=== PATIENT | female | born 1955 | race Caucasian/White ===

== ENCOUNTER → 2017-12-03 08:29 | Outpatient (CLI) | payer OTHER, SELFPAY | PROVIDERS: Family Provider Internal Medicine; PCP Internal Medicine; Visit Provider Internal Medicine | DX: E11.9 Type 2 diabetes mellitus without complications (principal); Z79.4 Long term (current) use of insulin ==

== ENCOUNTER → 2017-12-09 08:09 | Outpatient (CLI) | payer OTHER, SELFPAY ==
[2017-12-09 08:36] LABS: Hematocrit 39.6 % (37-47); Hemoglobin 13.1 g/dl (12.0-15.0); Mean Corp Hgb Conc 33.1 g/gl (32-36); Mean Corpuscular Hgb 26.6 pg (27.0-32.0); Mean Corpuscular Volume 80.3 fL (81-99); Mean Platelet Vol. 9.7 fl (6.2-12.0); Platelet Count 235 K/mm3 (150-450); RBC Distribution Width CV 13.8 % (11.6-14.6); RBC Distribution Width SD 39.8 fl (35.1-43.9); Red Blood Count 4.93 M/mm3 (4.2-5.4); White Blood Count 7.9 K/mm3 (4.4-11.0)
[2017-12-09 08:37] LABS: Scan Indicated on CBC? Y/N NO
[2017-12-09 09:02] LABS: Microalbumin,Random Urine 12.5 mg/L (NO RANGE EST.); Microalbumin:Creatinine Ratio 5.7 mg/g CRE (<30 mg/g CRE)
== END ==
PROVIDERS: Family Provider Internal Medicine; PCP Internal Medicine; Visit Provider Internal Medicine
DX: Z79.899 Other long term (current) drug therapy (principal)
CPT/HCPCS: 36415; 82043; 82570; 85027

== ENCOUNTER → 2017-12-31 12:29 | Outpatient (CLI) | payer OTHER, SELFPAY | PROVIDERS: Family Provider Internal Medicine; PCP Internal Medicine; Visit Provider Internal Medicine | DX: Z12.31 Encounter for screening mammogram for malignant neoplasm of breast (principal) | CPT/HCPCS: 77063; 77067 ==

== ENCOUNTER → 2018-06-08 07:14 | Outpatient (CLI) | payer OTHER, SELFPAY ==
[2018-06-08 08:41] LABS: Hemoglobin A1c 6.8 % (4.2-6.3)
[2018-06-08 08:53] LABS: ALB/GLOB Ratio 1.1 RATIO (0.9-2.4); AST(SGOT) 10 U/L (15-37); Alanine Aminotransfer ALT/SGPT 19 U/L (13-56); Albumin, Serum 3.5 g/dL (3.2-5.0); Alkaline Phosphatase 57 U/L (45-117); Anion Gap 9 (5-15); BUN 14 mg/dL (7-18); BUN/Creat Ratio 17.2 RATIO (10-20); Calcium,Total 8.8 mg/dL (8.5-10.1); Chloride 101 mmol/L (98-107); Cholesterol 195 mg/dL (200); Creatinine, Serum 0.81 mg/dL (0.55-1.02); EST Glomerular Filtration Rate 75 mL/min (>60); Est Glom Filt Rate - Afr Amer 91 mL/min (>60); Globulin 3.2 g/dL (2.2-4.2); Glucose 155 mg/dL (74-106); High Density Lipoprotein 53 mg/dL; Potassium 3.6 mmol/L (3.5-5.1); Protein, Total 6.7 g/dL (6.4-8.2); Sodium Level 140 mmol/L (136-145); Triglycerides 197 mg/dL; Very Low Density Lipoprotein 39 mg/dL (5-40)
--- OUTSIDE RECORDS SUMMARY | 2018-08-12 22:20 | XMS RPT_ITS ---
:1955 Author Organization OHIP Care Team Providers Name Role Phone DILLON LEMUS (YAQUELIN) Attending Unavailable RAVIN NAJERA Referring Unavailable TAMARA BALLESTEROS Admitting Unavailable TAMARA BALLESTEROS Attending Unavailable RAVIN NAJERA Referring Unavailable NAJERA, RAVIN Ramires Attending Unavailable RAVIN NAJERA Attending Unavailable RAVIN NAJERA Referring Unavailable DANIA, RAVIN Ramires Referring Unavailable Ravin Najera Attending Unavailable Ravin Najera Primary Care Unavailable Ravin Najera Referring Unavailable Ravin Najera Attending Unavailable Ravin Najera Primary Care Unavailable Ravin Najera Attending Unavailable Ravin Najera Referring Unavailable Dania, Ravin Primary Care Unavailable Ravin Najera Attending Unavailable Ravin Najera Primary Care Unavailable Ravin Najera Attending Unavailable Ravin Najera Primary Care Unavailable Ravin Najera Referring Unavailable PROBLEMS PROBLEMS DATE TYPE CONDITION / CODE ATTENDING STATUS SOURCE 06/14/2018 Active Other fpc NA Active [facility] (current) drug [facility] therapy / Repository Z79.899(ICD-10) 05/07/2015 Active Type 2 diabetes DANIA, Active [facility] mellitus without [facility] complications / Repository E11.9(ICD-10) 05/07/2015 Active residential (current) NAJERA, Active [facility] use of insulin / [facility] Z79.4(ICD-10) Repository 10/29/2006 Active Essential (primary) NAJERA, Active [facility] hypertension / [facility] I10(ICD-10) Repository 12/22/2017 Active Encounter for NAJERA, Active [facility] screening mammogram [facility] for malignant Repository neoplasm of breast / Z12.31(ICD-10) 12/09/2017 Unknown Z79.899 - Other Najera, Active [facility] [employer] (current) [facility] drug therapy / Hospital Z79.899(ICD-10) Repository 09/17/2017 Active Encounter for FAVIAN, Active [facility] screening for TAMARA [facility] malignant neoplasm Repository of colon / Z12.11(ICD-10) PROCEDURES PROCEDURES No Procedure Records FoundRESULTS RESULTS ALBUMIN/CREAT RATIO Collected: 06/14/2018 Status: F Source: [place] 9:40 AM [facility] REPOSITORY TYPE CODE TESTS RESULT OUT OF REFERENCE UNITS RANGE LAB UCRR 20-300 mg/dL 141.0 Creatinine,Ur ine,Ran LAB UALBR 0.0-23.0 mg/L <12.0 Albumin Urine Random LAB UALBCR 0-30 mg/g Not Albumin/Creat calculated Ratio Performed By: #### UACR #### [facility] [address] [address] PROGRESS Observed: 06/14/2018 Status: COMPLETED Source: [place] 9:27 AM [facility] REPOSITORY HNO ID: [id number] Author: Ravin Ramires Najera Service: (none) Author Type: Physician Type: Progress Notes Filed: 06/14/2018 9:41 AM Note Text: This note was created using Kngrooriter. Subjective Franklin Mota is a 62 year old female here for her annual physical. She was doing well and had no acute concerns. Her diabetes mellitus and hypertension were controlled. Lipids were not ideal but she was statin intolerant. We reviewed her lab results. PAST MEDICAL HISTORY Diagnosis Date - Chronic venous insufficiency 09/02/2010 - CIRCUMSCRIBE SCLERODERMA 11/04/2006 external genitalia - Essential hypertension, benign 10/29/2006 - Family history of malignant neoplasm of gastrointestinal tract 10/29/2006 - Internal hemorrhoids without mention of complication - Left knee DJD 10/05/2011 - Lichen sclerosus et atrophicus of the vulva 06/11/2017 - Mental disorder - Rectocele 10/29/2006 - Snoring - Type II or unspecified type diabetes mellitus without mention of complication, not stated as uncontrolled 04/13/2005 PAST SURGICAL HISTORY Procedure Laterality Date - BIOPSY BREAST 1997 benign - COLONOSCOP W/ OR W/O BRS SPEC Colonoscopy - COLONOSCOP W/ OR W/O BRSH SPEC 03/16/2007 Colonoscopy - COLONOSCOP W/ OR W/O BRS SPEC 09/17/2017 repeat in 5 years due to family history - TOTAL ABDOM HYSTERECTOMY 1997 still has ovaries FAMILY HISTORY Problem Relation Age of Onset - Colon Cancer Mother diagnosed age 56, age 56 - Hypertension Mother - Diabetes Mother - Coronary Artery Disease Father [place] age 62. - Prostate Cancer Father - Alzheimer's Disease Father - Alzheimer's Disease Paternal Grandfather - Diabetes Son - Diabetes Son - None Sister - None Brother Social History Marital status: Spouse name: tamara Years of education: Number of children: Occupational History Occupation Employer Comment retired [employer]* Social History Main Topics Smoking status: Never Smoker Smokeless tobacco: Never Used Alcohol use: No Drug use: No Sexual activity: Yes Partners with: Male Comment: pt had hysterectomy 01/1998 ALLERGIES Allergen Reactions - Urfcgxr-Vzv-Gvr Red* Other: See Comments noemi Ying, multiple statins tried. - [place] - Seasonal Allergies Other: See Comments Runny nose Current Outpatient Prescriptions: insulin glargine (LANTUS U-100 INSULIN) 100 unit/mL injection Taking THIRTY (30) units at bedtime. Fasting goal of less than 130. insulin lispro (HUMALOG KWIKPEN INSULIN) 100 unit/mL inpn Inject 15 Units subcutaneously three times daily before meals. hydroCHLOROthiazide (HYDRODIURIL, ESIDRIX) 25 mg tablet TAKE 1 TABLET DAILY losartan (COZAAR) 100 mg tablet TAKE 1 TABLET DAILY metFORMIN (GLUCOPHAGE) 1,000 mg tablet TAKE 1 TABLET TWICE A DAY WITH MEALS verapamil SR (CALAN SR, ISOPTIN SR) 240 mg CR tablet TAKE 1 TABLET DAILY Macy-3 Fatty Acids (FISH OIL) 500 mg cap Take 2 capsules by mouth once daily. blood sugar diagnostic (FREESTYLE LITE STRIPS) test strip Test blood sugar(s) 3 times daily. Dx: E11.9 Insulin: Yes Blood Glucose Control High and Low (FREESTYLE CONTROL) soln For testing as directed. DX E11.9 insulin needles, DISPOSABLE, (PEN NEEDLE) 31 gauge x 5/16 ndle 1 Each. USE ONE NEEDLE FOR EACH DOSE THREE PER DAY Insulin Syringe-Needle U-100 (BD ULTRAFINE INSULIN) 1 mL 31 x 5/16 syrg 1 Syringe once daily. Multivitamin ORAL Tab Take one(1) tablet daily. ASPIRIN 81 MG TAB one tablet twice daily No current facility-administered medications for this visit. Review of Systems Constitutional: Negative. HENT: Negative. Eyes: Negative. Respiratory: Negative. Cardiovascular: Positive for leg swelling. Negative for chest pain and palpitations. Gastrointestinal: Negative. Genitourinary: Negative. Musculoskeletal: Positive for arthralgias. Neurological: Negative. Psychiatric/Behavioral: Negative. Objective BP 128/70 (BP Site: Left Arm, BP Position: Sitting, BP Cuff Size: Large Adult) Pulse 68 Temp 36.2 ?C (97.1 ?F) (Temporal Artery) Resp 16 Ht 161.3 cm (5' 3.5) Wt 91.6 kg (202 lb) BMI 35.22 kg/m? Physical Exam Constitutional: No distress. HENT: Head: Normocephalic. Eyes: Conjunctivae are normal. No scleral icterus. Neck: Normal carotid pulses and no JVD present. Carotid bruit is not present. No thyromegaly present. Cardiovascular: Normal rate, regular rhythm, S1 normal and S2 normal. Exam reveals no gallop. No murmur heard. Pulmonary/Chest: She has no wheezes. She has no rales. Abdominal: Soft. She exhibits no mass. There is no tenderness. Musculoskeletal: Normal range of motion. She exhibits edema. She exhibits no tenderness. 1-2+ nonpitting lymphedema. Fine varicose veins in distal lower extremities. Skin: She is not diaphoretic. Glucose meter data or log was reviewed. Range: 58-169. Average: n/a. Patient was testing BID. Higher frequency of testing needed: no. Outside labs reviewed. Assessment and Plan 1. Routine physical examination - ICD9: V70.0, ICD10: Z00.00 (primary diagnosis) - Discussed need and benefit for weight loss. BMI 35.22 kg/(m2) - Vaccination(s) recommended today of Shingrix 2. Obesity, Class II, BMI 35-39.9 - ICD9: 278.00, ICD10: E66.9 Weight loss. 3. Controlled type 2 diabetes mellitus without complication, with long-term current use of insulin (HCC) - ICD9: 250.00, V58.67, ICD10: E11.9, Z79.4 Controlled. - Continue current medications - BASIC METABOLIC PNL - HGB A1C - Statins discussed, and she was intolerant to multiple statins. 4. Essential hypertension, benign - ICD9: 401.1, ICD10: I10 - good control - Continue current medication(s) - Goal of BP <130/80 5. Chronic venous insufficiency - ICD9: 459.81, ICD10: I87.2 Stable. 6. Primary osteoarthritis of both knees - ICD9: 715.16, ICD10: M17.0 Stable. Ravin Najera MD CNOV Observed: 06/14/2018 Status: COMPLETED Source: [place] 8:40 AM [facility] REPOSITORY Office Visit (INTMWS) FRANKLIN MOTA ([id number]) 1955 F Date Time Provider Department 06/14/18 8:40 AM RAVIN NAJERA INTMWS During your visit today, we recorded the following information about you: Temperature Pulse Respiration Blood pressure 97.1 degrees 68/minute 16/minute 128/70 Weight Height 91.6 kg 1.613 m Ravin Najera MD 06/14/2018 9:24 AM Signed Recombinant shingles vaccine (Shingrix) is recommended; 2 doses 2-6 months apart. Please read information, check with your insurance, and call to schedule vaccination. You may also be directed to your local pharmacy. Ravin Najera MD 06/14/2018 9:41 AM Signed This note was created using Kngrooriter. Subjective Franklin Mota is a 62 year old female here for her annual physical. She was doing well and had no acute concerns. Her diabetes mellitus and hypertension were controlled. Lipids were not ideal but she was statin intolerant. We reviewed her lab results. PAST MEDICAL HISTORY Diagnosis Date - Chronic venous insufficiency 09/02/2010 - CIRCUMSCRIBE SCLERODERMA 11/04/2006 external genitalia - Essential hypertension, benign 10/29/2006 - Family history of malignant neoplasm of gastrointestinal tract 10/29/2006 - Internal hemorrhoids without mention of complication - Left knee DJD 10/05/2011 - Lichen sclerosus et atrophicus of the vulva 06/11/2017 - Mental disorder - Rectocele 10/29/2006 - Snoring - Type II or unspecified type diabetes mellitus without mention of complication, not stated as uncontrolled 04/13/2005 PAST SURGICAL HISTORY Procedure Laterality Date - BIOPSY BREAST 1997 benign - COLONOSCOP W/ OR W/O [facility] SPEC Colonoscopy - COLONOSCOP W/ OR W/O BRS SPEC 03/16/2007 Colonoscopy - COLONOSCOP W/ OR W/O BRS SPEC 09/17/2017 repeat in 5 years due to family history - TOTAL ABDOM HYSTERECTOMY 1997 still has ovaries FAMILY HISTORY Problem Relation Age of Onset - Colon Cancer Mother diagnosed age 56, age 56 - Hypertension Mother - Diabetes Mother - Coronary Artery Disease Father [place] age 62. - Prostate Cancer Father - Alzheimer's Disease Father - Alzheimer's Disease Paternal Grandfather - Diabetes Son - Diabetes Son - None Sister - None Brother Social History Marital status: Spouse name: tamara Years of education: Number of children: Occupational History Occupation Employer Comment retired [employer]* Social History Main Topics Smoking status: Never Smoker Smokeless tobacco: Never Used Alcohol use: No Drug use: No Sexual activity: Yes Partners with: Male Comment: pt had hysterectomy 01/1998 ALLERGIES Allergen Reactions - Dccwubm-Psx-Rfs Red* Other: See Comments Cramps, nighmares, multiple statins tried. - [place] - Seasonal Allergies Other: See Comments Runny nose Current Outpatient Prescriptions: insulin glargine (LANTUS U-100 INSULIN) 100 unit/mL injection Taking THIRTY (30) units at bedtime. Fasting goal of less than 130. insulin lispro (HUMALOG KWIKPEN INSULIN) 100 unit/mL inpn Inject 15 Units subcutaneously three times daily before meals. hydroCHLOROthiazide (HYDRODIURIL, ESIDRIX) 25 mg tablet TAKE 1 TABLET DAILY losartan (COZAAR) 100 mg tablet TAKE 1 TABLET DAILY metFORMIN (GLUCOPHAGE) 1,000 mg tablet TAKE 1 TABLET TWICE A DAY WITH MEALS verapamil SR (CALAN SR, ISOPTIN SR) 240 mg CR tablet TAKE 1 TABLET DAILY Macy-3 Fatty Acids (FISH OIL) 500 mg cap Take 2 capsules by mouth once daily. blood sugar diagnostic (FREESTYLE LITE STRIPS) test strip Test blood sugar(s) 3 times daily. Dx: E11.9 Insulin: Yes Blood Glucose Control High and Low (FREESTYLE CONTROL) soln For testing as directed. DX E11.9 insulin needles, DISPOSABLE, (PEN NEEDLE) 31 gauge x 5/16 ndle 1 Each. USE ONE NEEDLE FOR EACH DOSE THREE PER DAY Insulin Syringe-Needle U-100 (BD ULTRAFINE INSULIN) 1 mL 31 x 5/16 syrg 1 Syringe once daily. Multivitamin ORAL Tab Take one(1) tablet daily. ASPIRIN 81 MG TAB one tablet twice daily No current facility-administered medications for this visit. Review of Systems Constitutional: Negative. HENT: Negative. Eyes: Negative. Respiratory: Negative. Cardiovascular: Positive for leg swelling. Negative for chest pain and palpitations. Gastrointestinal: Negative. Genitourinary: Negative. Musculoskeletal: Positive for arthralgias. Neurological: Negative. Psychiatric/Behavioral: Negative. Objective BP 128/70 (BP Site: Left Arm, BP Position: Sitting, BP Cuff Size: Large Adult) Pulse 68 Temp 36.2 ?C (97.1 ?F) (Temporal Artery) Resp 16 Ht 161.3 cm (5' 3.5) Wt 91.6 kg (202 lb) BMI 35.22 kg/m? Physical Exam Constitutional: No distress. HENT: Head: Normocephalic. Eyes: Conjunctivae are normal. No scleral icterus. Neck: Normal carotid pulses and no JVD present. Carotid bruit is not present. No thyromegaly present. Cardiovascular: Normal rate, regular rhythm, S1 normal and S2 normal. Exam reveals no gallop. No murmur heard. Pulmonary/Chest: She has no wheezes. She has no rales. Abdominal: Soft. She exhibits no mass. There is no tenderness. Musculoskeletal: Normal range of motion. She exhibits edema. She exhibits no tenderness. 1-2+ nonpitting lymphedema. Fine varicose veins in distal lower extremities. Skin: She is not diaphoretic. Glucose meter data or log was reviewed. Range: 58-169. Average: n/a. Patient was testing BID. Higher frequency of testing needed: no. Outside labs reviewed. Assessment and Plan 1. Routine physical examination - ICD9: V70.0, ICD10: Z00.00 (primary diagnosis) - Discussed need and benefit for weight loss. BMI 35.22 kg/(m2) - Vaccination(s) recommended today of Shingrix 2. Obesity, Class II, BMI 35-39.9 - ICD9: 278.00, ICD10: E66.9 Weight loss. 3. Controlled type 2 diabetes mellitus without complication, with long-term current use of insulin (HCC) - ICD9: 250.00, V58.67, ICD10: E11.9, Z79.4 Controlled. - Continue current medications - BASIC METABOLIC PNL - HGB A1C - Statins discussed, and she was intolerant to multiple statins. 4. Essential hypertension, benign - ICD9: 401.1, ICD10: I10 - good control - Continue current medication(s) - Goal of BP <130/80 5. Chronic venous insufficiency - ICD9: 459.81, ICD10: I87.2 Stable. 6. Primary osteoarthritis of both knees - ICD9: 715.16, ICD10: M17.0 Stable. Ravin Najera MD Referring Provider: RAVIN NAJERA [[id number]] Allergies As of Date: 06/14/2018 Noted Allergy Reaction KQZFFCM-OPZ-LHU REDUCTASE INHIBIT*08/21/2013 14 - Other: See Comments Comments: noemi Ying, multiple statins tried. [place] 09/18/2008 SEASONAL ALLERGIES 10/21/2010 14 - Other: See Comments Comments: Runny nose Date Reviewed: 06/14/2018 Reviewed by: Renee Cannon LPN - Fully Assessed Reason for Visit: Yearly Exam [187] Primary Visit Diagnosis:Routine physical examination [Z00.00] Other Visit Diagnoses:Obesity, Class II, BMI 35-39.9 [E66.9] Controlled type 2 diabetes mellitus without complication, with long-term current use of insulin (HCC) [E11.9, Z79.4] Essential hypertension, benign [I10] Chronic venous insufficiency [I87.2] Primary osteoarthritis of both knees [M17.0] Order(s):insulin glargine (LANTUS U-100 INSULIN) 100 unit/mL injectionTaking THIRTY (30) units at bedtime. Fasting goal of less than 130.Disp: 8 VialRfl: 3 insulin lispro (HUMALOG KWIKPEN INSULIN) 100 unit/mL inpnInject 15 Units subcutaneously three times daily before meals.Disp: 15 PenRfl: 3 BASIC METABOLIC PNL [SQBMP] Order #: [id number] FUTURE HGB A1C [GTSFP4S] Order #: [id number] FUTURE BMP - EXTERNAL [0664220] Order #: [id number] LIPID PANEL (EXTERNAL) [9613415] Order #: [id number] HGB A1C [RFPEZ1H] Order #: [id number] Prescriptions as of 06/14/2018 Sig: INSULIN GLARGINE (U-100) 100 * Taking THIRTY (30) units at b* INSULIN LISPRO (U-100) 100 UN* Inject 15 Units subcutaneousl* HYDROCHLOROTHIAZIDE 25 MG TAB* TAKE 1 TABLET DAILY LOSARTAN 100 MG TABLET TAKE 1 TABLET DAILY METFORMIN 1,000 MG TABLET TAKE 1 TABLET TWICE A DAY WIT* VERAPAMIL ER (SR) 240 MG TABL* TAKE 1 TABLET DAILY OMEGA-3 FATTY ACIDS 500 MG CA* Take 2 capsules by mouth once* BLOOD SUGAR DIAGNOSTIC STRIPS Test blood sugar(s) 3 times d* BLOOD GLUCOSE CONTROL HIGH AN* For testing as directed. DX * PEN NEEDLE, DIABETIC 31 GAUGE* 1 Each. USE ONE NEEDLE FOR EA* INSULIN SYRINGE U-100 WITH NE* 1 Syringe once daily. MULTIVITAMIN TABLET Take one(1) tablet daily. 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 Please read information, check with your insurance, and call to schedule vaccination. You may also be directed to your local pharmacy. Prescriptions ordered this encounter Disp Refills Start End INSULIN GLARGINE (U-100) 100 UNIT/ML* 8 Vi* 3 06/14/2018 Class: Print RX Sig: Taking THIRTY (30) units at bedtime. Fasting goal of less than 130. INSULIN LISPRO (U-100) 100 UNIT/ML S* 15 P* 3 06/14/2018 Class: Print RX Route: SUBCUTANEOUS Sig: Inject 15 Units subcutaneously three times daily before meals. Medications Discontinued During This Encounter COMPOUNDED PRESCRIPTION 1 Ea* 0 12/22/2017 06/14/2018 Class: Print RX Sig: Screening bilateral mammogram. Dx:Z12.31 Patient not taking: Reported on 06/14/2018 Disc: Reason for discontinue is not on file. insulin glargine (LANTUS) 100 unit/m* 8 Vi* 3 05/26/2016 06/14/2018 Class: Med Update Sig: Taking THIRTY (30) units at bedtime. Fasting goal of less than 130. Disc: Reason for discontinue is not on file. Insulin Lispro, Human, (HUMALOG KWIK* 15 P* 3 09/29/2014 06/14/2018 Route: SUBCUTANEOUS Sig: Inject 15 Units subcutaneously three times daily before meals. Disc: Reason for discontinue is not on file. ibuprofen (MOTRIN) 800 mg tablet 30 t* 0 08/10/2016 06/14/2018 Route: ORAL Sig: Take 1 tablet by mouth twice daily as needed for Pain. Take with food. Disc: Reason for discontinue is not on file. clobetasol (TEMOVATE) 0.05 % ointment 15 g 3 05/25/2017 06/14/2018 Route: TOPICAL Sig: Apply 1 application to affected area daily at bedtime. TO AFFECTED AREA. Disc: Course of therapy completed Disposition: Return in about 6 months (around 12/12/2018). Follow-up and Disposition History Recorded Encounter Status:Closed by RAVIN NAJERA MD on 06/14/18 HEMOGLOBIN A1C Collected: 06/08/2018 Status: F Source: [facility] 7:19 AM [facility] REPOSITORY TYPE CODE TESTS RESULT OUT OF RANGE REFERENCE UNITS LAB L501.9985 4.2-6.3 % High HGB A1C 6.8 Performed By: #### L501.9985 #### [facility] [address] [place], [address] COMPREHENSIVE METABOLIC Collected: 06/08/2018 Status: F Source: [facility] 7:19 AM [facility] REPOSITORY TYPE CODE TESTS RESULT OUT OF RANGE REFERENCE UNITS LAB L501.0100 74-106 mg/dL High GLU 155 Result Comment: Fasting Glucose result greater than or equal to 126 mg/dL suggests DIABETES MELLITUS per A.D.A. criteria. Please note revised GLUCOSE reference range effective 2017. LAB L501.1000 7-18 mg/dL Normal BUN 14 LAB L501.1100 0.55-1.02 mg/dL Normal CREAT,SERUM 0.81 Result Comment: The validity of the calculated GFR AND GFRAA in patients over 70 years has not been determined. Clinical correlation is essential. LAB L501.1110 >60 mL/min Normal EST GFR 75 Result Comment: Non- GFR Calc LAB L501.1115 >60 mL/min Normal EST GFR - AA 91 Result Comment: GFR Calc LAB L501.1300 10-20 RATIO Normal BUN/CRE 17.2 LAB L501.1500 6.4-8.2 g/dL T Normal PROT 6.7 LAB L501.1800 3.2-5.0 g/dL Normal ALB 3.5 LAB L501.1950 2.2-4.2 g/dL Normal GLOB 3.2 LAB L501.2000 0.9-2.4 RATIO Normal A/G 1.1 LAB L501.2200 8.5-10.1 mg/dL CA Normal 8.8 LAB L501.4100 15-37 U/L Low AST 10 LAB L501.4305 45-117 U/L Normal ALK P 57 LAB L501.4405 13-56 U/L Normal ALT 19 LAB L501.4600 0.20-1.00 mg/dL T Normal BILI 0.90 LAB L501.5300 136-145 mmol/L NA Normal 140 LAB L501.5600 3.5-5.1 mmol/L K Normal 3.6 LAB L501.5900 98-107 mmol/L CL Normal 101 LAB L501.6100 21.0-32.0 mmol/L Normal CO2 30.0 LAB L501.6200 5-15 Normal GAP 9 Performed By: #### L500.4050, L500.4100 #### [facility] [address] [place], [place], [id number] LIPID PROFILE Collected: 06/08/2018 Status: F Source: [facility] 7:19 AM [facility] REPOSITORY TYPE CODE TESTS RESULT OUT OF RANGE REFERENCE UNITS LAB L501.4900 200 mg/dL Normal CHOL 195 Result Comment: <200 mg/dL Desirable 200-240 mg/dL Borderline >240 mg/dL High Risk LAB L501.5000 mg/dL Normal TRIG 197 Result Comment: The drugs N-Acetylcysteine and Metamizole may falsely depress this assay. Serum Triglycerides Reference Interval Normal <150 mg/dL Borderline high 150 - 199 mg/dL High 200 - 499 mg/dL Very High > or = 500 mg/dL LAB L501.6400 mg/dL Normal HDL 53 Result Comment: The drugs N-Acetylcysteine and Metamizole may falsely depress this assay. Reference Range HDL <40 mg/dL Low HDL Cholesterol HDL >or= 60 mg/dL High HDL Cholesterol LAB L501.6500 0-130 mg/dL Normal LDL 103 LAB L501.6600 5-40 mg/dL Normal VLDL 39 Performed By: #### L500.4050, L500.4100 #### [facility] [address] [place], [place], [id number] SCREENING MAMM (CAD), Observed: 12/31/2017 Status: F Source: [facility] 12:31 PM [facility] REPOSITORY [facility] Imaging Services [address] [place] [address] SCREENING MAMM (CAD), BILAT MR#: [id number] Acct: [id number] Name: FRANKLIN MOTA Rep #: [id number] : 1955 F 62 From: Ian Leiva MD PCP: Ravin Najera MD Status: REG CLI Study: SCREENING MAMM (CAD), BILAT Date of Exam: 12/31/17 Exam# [id number] Ordering Dr: Ravin Najera MD MAMMOGRAPHY - BILATERAL SCREENING 3-D YAYO SYNTHESIS REASON FOR EXAM: Female, 62 years old. Bilateral Screening 3-D tomosynthesis PERTINENT HISTORY: History of benign left excisional biopsy in 1997.. TECHNIQUE: 2-D mammograms and 3-D Yayo synthesis of the breast (s) were performed. CAD was performed. COMPARISON: November 06, 2015, April 12, 2013 FINDINGS: The breast composition is heterogeneously dense that can obscure small breast masses. Scattered benign calcifications and normal-appearing cyst are seen. No dense spiculated masses or suspicious microcalcifications are identified. No architectural distortion is identified. There is no skin thickening or retraction. There has been no significant change since the prior study. BI/SCREENING MAMM (CAD), BILAT IMPRESSION: No mammographic signs of malignancy. Routine yearly mammograms recommended. ASSESSMENT CATEGORY: BIRADS Category 2: Benign. A letter regarding these results will be sent to the patient by the facility within 30 days. FOLLOW UP RECOMMENDATION: Yearly follow up mammogram recommended. (A) Approximately 10% of breast cancers are not detected by mammography. A normal mammogram should not delay biopsy of a clinically suspicious abnormality. Electronically Signed: Ian Leiva MD at 18:51 EDT , Service support , CC: Ravin Najera MD Forming Roll Operator: Signed PROGRESS Observed: 12/23/2017 Status: COMPLETED Source: [place] 9:17 AM [facility] [place] REPOSITORY HNO ID: [id number] Author: Carrie Liu [facility] Service: (none) Author Type: (none) Type: Progress Notes Filed: 12/28/2017 10:35 AM Note Text: Please file mammogram. Reminder letters mailed to patient. PROGRESS Observed: 12/23/2017 Status: COMPLETED Source: [place] 9:15 AM [facility] REPOSITORY HNO ID: [id number] Author: Carrie Liu [facility] Service: (none) Author Type: (none) Type: Progress Notes Filed: 12/28/2017 10:35 AM Note Text: Franklin has an upcoming appointment with PCP on 06/14/18. Labs already ordered (will be due around that time). I will send appointment/lab reminder. I will also send dm retinal reminder/release form. Mammogram order pending. Please file. Health Maintenance Due: DILATED RETINAL EXAM due on 11/11/2017 - sending reminder LDL CHOLESTEROL due on 11/19/2017 - ordered MAMMOGRAM due on 12/09/2017 - order pending INFLUENZA(1) due on 01/22/2018 CNPTOUTREACH Observed: 12/23/2017 Status: COMPLETED Source: [place] 12:00 AM [facility] REPOSITORY Patient Outreach (INTMWS) FRANKLIN MOTA ([id number]) 1955 F Date Time Provider Department 12/23/17 CARRIE LIU ([facility] [address] INTMWS During your visit today, we recorded the following information about you: Carrie Liu [facility] 12/28/2017 10:35 AM Signed Franklin has an upcoming appointment with PCP on 06/14/18. Labs already ordered (will be due around that time). I will send appointment/lab reminder. I will also send dm retinal reminder/release form. Mammogram order pending. Please file. Health Maintenance Due: DILATED RETINAL EXAM due on 11/11/2017 - sending reminder LDL CHOLESTEROL due on 11/19/2017 - ordered MAMMOGRAM due on 12/09/2017 - order pending INFLUENZA(1) due on 01/22/2018 Carrie Liu [employer] 12/28/2017 10:35 AM Signed Please file mammogram. Reminder letters mailed to patient. Allergies As of Date: 12/23/2017 Noted Allergy Reaction [id number]-GGL REDUCTASE INHIBIT*08/21/2013 14 - Other: See Comments Comments: Cramps, nighmares, multiple statins tried. [place] 09/18/2008 SEASONAL ALLERGIES 10/21/2010 14 - Other: See Comments Comments: Runny nose Date Reviewed: 12/22/2017 Reviewed by: Renee Cannon LPN - Fully Assessed Reason for Visit: PHMA/Care Gap Outreach [[id number]] Primary Visit Diagnosis:Encounter for screening mammogram for malignant neoplasm of breast [Z12.31] Order(s):[facility] SCREENING [[id number]] Order #: [id number] FUTURE Prescriptions as of 12/23/2017 Sig: COMPOUNDED PRESCRIPTION Screening bilateral mammogram* VERAPAMIL ER (SR) 240 MG TABL* TAKE 1 TABLET DAILY LOSARTAN 100 MG TABLET TAKE 1 TABLET DAILY CLOBETASOL 0.05 % TOPICAL OIN* Apply 1 application to affect* HYDROCHLOROTHIAZIDE 25 MG TAB* Take 1 tablet by mouth once d* METFORMIN 1,000 MG TABLET Take one(1) tablet twice francis* IBUPROFEN 800 MG TABLET Take 1 tablet by mouth twice * INSULIN GLARGINE (U-100) 100 * Taking THIRTY (30) units at b* OMEGA-3 FATTY ACIDS 500 MG CA* Take 2 capsules by mouth once* BLOOD SUGAR DIAGNOSTIC STRIPS Test blood sugar(s) 3 times d* BLOOD GLUCOSE CONTROL HIGH AN* For testing as directed. DX * PEN NEEDLE, DIABETIC 31 GAUGE* 1 Each. USE ONE NEEDLE FOR EA* INSULIN LISPRO (U-100) 100 UN* Inject 15 Units subcutaneousl* INSULIN SYRINGE-NEEDLE U-100 * 1 Syringe once daily. MULTIVITAMIN TABLET Take one(1) tablet daily. 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 Our records indicate that you may be due for a diabetic eye exam. If you have had a diabetic eye exam within the last year, please have your records sent to us so that we may update your medical records. There is a medical records of release of information included in this letter. Please take the release to your eye doctor for future appointments to have your records forwarded to us. Important facts about diabetic eye exams Diabetic retinal exams should be done yearly for all patients with a diagnosis of diabetes. Risks such as diabetic retinopathy can be reduced with blood glucose control and early detection of potential problems. Diabetic retinopathy is damage to the small blood vessels in the retina that can lead to blindness Thank you, Ravin Vazquez MD Letter Text Medicine [facility] [address] [id number] Office: [phone] Ravin Vazquez MD REQUEST FOR EYE EXAM FINDINGS June 12, 2016 Dear eye restorative care technician, Thank you for coordinating eye care for our mutual patient, Franklin Mota (1955). Please fax this letter back to me with the most appropriate response selected below. Please allow the patient's signature to serve as permission to share your findings. Sincerely, Ravin Vazquez MD Patient Signature Date Date of eye exam: Findings Both Eyes Right Left No Retinopathy Detected Non Proliferative Retinopathy Mild Moderate Severe Proliferative Retinopathy Macular Edema Further testing and/or treatment indicated Comments: Patient is to return: Encounter Status:Closed by CARRIE LIU CMA on 12/28/17 PROGRESS Observed: 12/22/2017 Status: COMPLETED Source: [place] 9:58 AM [facility] REPOSITORY HNO ID: [id number] Author: Ravin Najera Service: (none) Author Type: Physician Type: Progress Notes Filed: 12/22/2017 12:40 PM Note Text: This note was created using [employer]. Subjective Franklin Mota is a 62 year old female here for follow up. She was doing well. Her diabetes mellitus was reportedly controlled, and hypertension was controlled. Labs for me were not done, as patient outreach entered other labs. In May, she eventually had IANDD of her perirectal abscess. This resolved. Colonoscopy was then done, and was negative for polyps. Repeat was recommended in 5 years. Her eye exam was scheduled. Mammogram was due, and will be done at a non [facility] facility per her insurance. ACTIVE PROBLEM LIST Diabetes Type 2, Controlled (Hcc) Essential Hypertension, Benign Family History of Malignant Neoplasm of Gastrointestinal Tract Rectocele Chronic Venous Insufficiency Primary Osteoarthritis of Both Knees Lichen Sclerosus Et Atrophicus of The Vulva Current Outpatient Prescriptions: verapamil SR (CALAN SR, ISOPTIN SR) 240 mg CR tablet TAKE 1 TABLET DAILY losartan (COZAAR) 100 mg tablet TAKE 1 TABLET DAILY clobetasol (TEMOVATE) 0.05 % ointment Apply 1 application to affected area daily at bedtime. TO AFFECTED AREA. hydroCHLOROthiazide (HYDRODIURIL, ESIDRIX) 25 mg tablet Take 1 tablet by mouth once daily. metFORMIN (GLUCOPHAGE) 1,000 mg tablet Take one(1) tablet twice daily with meals.90 day supply ibuprofen (MOTRIN) 800 mg tablet Take 1 tablet by mouth twice daily as needed for Pain. Take with food. insulin glargine (LANTUS) 100 unit/mL injection Taking THIRTY (30) units at bedtime. Fasting goal of less than 130. Macy-3 Fatty Acids (FISH OIL) 500 mg cap Take 2 capsules by mouth once daily. blood sugar diagnostic (FREESTYLE LITE STRIPS) test strip Test blood sugar(s) 3 times daily. Dx: E11.9 Insulin: Yes Blood Glucose Control High and Low (FREESTYLE CONTROL) soln For testing as directed. DX E11.9 insulin needles, DISPOSABLE, (PEN NEEDLE) 31 gauge x 5/16 ndle 1 Each. USE ONE NEEDLE FOR EACH DOSE THREE PER DAY Insulin Lispro, Human, (HUMALOG KWIKPEN) 100 unit/mL inpn Inject 15 Units subcutaneously three times daily before meals. Insulin Syringe-Needle U-100 (BD ULTRAFINE INSULIN) 1 mL 31 x 5/16 syrg 1 Syringe once daily. Multivitamin ORAL Tab Take one(1) tablet daily. ASPIRIN 81 MG TAB one tablet twice daily COMPOUNDED PRESCRIPTION Screening bilateral mammogram. Dx:Z12.31 No current facility-administered medications for this visit. Review of Systems Constitutional: Negative. Respiratory: Negative. Cardiovascular: Positive for leg swelling. Negative for chest pain and palpitations. Gastrointestinal: Negative. Genitourinary: Negative. Skin: Negative. Objective BP 128/74 (BP Site: Right Arm, BP Position: Sitting, BP Cuff Size: Large Adult) Pulse 80 Temp 36.2 ?C (97.2 ?F) (Left Tympanic) Resp 16 Wt 92.1 kg (203 lb) BMI 34.84 kg/m? Physical Exam Constitutional: No distress. Cardiovascular: Normal heart sounds. Exam reveals no gallop. No murmur heard. Pulmonary/Chest: Breath sounds normal. She has no wheezes. She has no rales. Musculoskeletal: She exhibits edema. 2+ chronic edema. Test results pertinent to today's visit were reviewed and discussed with the patient. Hemoglobin A1C Date Value 06/01/2017 5.9 % 11/19/2016 6.5 11/04/2015 7.0 04/29/2015 6.9 % 10/25/2014 6.9 % Hemoglobin A1C (POCT) (%) Date Value 12/22/2017 5.7 ) Assessment and Plan 1. Controlled type 2 diabetes mellitus without complication, with long-term current use of insulin ([facility]) - ICD9: 250.00, V58.67, ICD10: E11.9, Z79.4 (primary diagnosis) Controlled. - Continue current medications. She preferred to postpone lipids and other labs for her yearly examination. - HEMOGLOBIN A1C (POC) - COMP METABOLIC PANEL - LIPID PANEL BASIC - HGB A1C 2. Essential hypertension, benign - ICD9: 401.1, ICD10: I10 - good control 3. Encounter for screening mammogram for breast cancer - ICD9: V76.12, ICD10: Z12.31 COMPOUNDED PRESCRIPTION- Mammogram order. During this patient visit I have spent approximately 15 minutes out of 20 in counseling regarding test results and coordinating care. Ravin Najera MD CNOV Observed: 12/22/2017 Status: COMPLETED Source: [place] 9:20 AM [facility] REPOSITORY Office Visit (INTMWS) FRANKLIN MOTA ([id number]) 1955 F Date Time Provider Department 12/22/17 9:20 AM RAVIN NAJERA INTMWS During your visit today, we recorded the following information about you: Temperature Pulse Respiration Blood pressure 97.2 degrees 80/minute 16/minute 128/74 Weight 92.1 kg Ravin Najera MD 12/22/2017 12:40 PM Signed This note was created using [employer]. Subjective Franklin Hernández Nakul is a 62 year old female here for follow up. She was doing well. Her diabetes mellitus was reportedly controlled, and hypertension was controlled. Labs for me were not done, as patient outreach entered other labs. In May, she eventually had IANDD of her perirectal abscess. This resolved. Colonoscopy was then done, and was negative for polyps. Repeat was recommended in 5 years. Her eye exam was scheduled. Mammogram was due, and will be done at a non [facility] facility per her insurance. ACTIVE PROBLEM LIST Diabetes Type 2, Controlled (Hcc) Essential Hypertension, Benign Family History of Malignant Neoplasm of Gastrointestinal Tract Rectocele Chronic Venous Insufficiency Primary Osteoarthritis of Both Knees Lichen Sclerosus Et Atrophicus of The Vulva Current Outpatient Prescriptions: verapamil SR (CALAN SR, ISOPTIN SR) 240 mg CR tablet TAKE 1 TABLET DAILY losartan (COZAAR) 100 mg tablet TAKE 1 TABLET DAILY clobetasol (TEMOVATE) 0.05 % ointment Apply 1 application to affected area daily at bedtime. TO AFFECTED AREA. hydroCHLOROthiazide (HYDRODIURIL, ESIDRIX) 25 mg tablet Take 1 tablet by mouth once daily. metFORMIN (GLUCOPHAGE) 1,000 mg tablet Take one(1) tablet twice daily with meals.90 day supply ibuprofen (MOTRIN) 800 mg tablet Take 1 tablet by mouth twice daily as needed for Pain. Take with food. insulin glargine (LANTUS) 100 unit/mL injection Taking THIRTY (30) units at bedtime. Fasting goal of less than 130. Macy-3 Fatty Acids (FISH OIL) 500 mg cap Take 2 capsules by mouth once daily. blood sugar diagnostic (FREESTYLE LITE STRIPS) test strip Test blood sugar(s) 3 times daily. Dx: E11.9 Insulin: Yes Blood Glucose Control High and Low (FREESTYLE CONTROL) soln For testing as directed. DX E11.9 insulin needles, DISPOSABLE, (PEN NEEDLE) 31 gauge x 5/16 ndle 1 Each. USE ONE NEEDLE FOR EACH DOSE THREE PER DAY Insulin Lispro, Human, (HUMALOG KWIKPEN) 100 unit/mL inpn Inject 15 Units subcutaneously three times daily before meals. Insulin Syringe-Needle U-100 (BD ULTRAFINE INSULIN) 1 mL 31 x 5/16 syrg 1 Syringe once daily. Multivitamin ORAL Tab Take one(1) tablet daily. ASPIRIN 81 MG TAB one tablet twice daily COMPOUNDED PRESCRIPTION Screening bilateral mammogram. Dx:Z12.31 No current facility-administered medications for this visit. Review of Systems Constitutional: Negative. Respiratory: Negative. Cardiovascular: Positive for leg swelling. Negative for chest pain and palpitations. Gastrointestinal: Negative. Genitourinary: Negative. Skin: Negative. Objective BP 128/74 (BP Site: Right Arm, BP Position: Sitting, BP Cuff Size: Large Adult) Pulse 80 Temp 36.2 ?C (97.2 ?F) (Left Tympanic) Resp 16 Wt 92.1 kg (203 lb) BMI 34.84 kg/m? Physical Exam Constitutional: No distress. Cardiovascular: Normal heart sounds. Exam reveals no gallop. No murmur heard. Pulmonary/Chest: Breath sounds normal. She has no wheezes. She has no rales. Musculoskeletal: She exhibits edema. 2+ chronic edema. Test results pertinent to today's visit were reviewed and discussed with the patient. Hemoglobin A1C Date Value 06/01/2017 5.9 % 11/19/2016 6.5 11/04/2015 7.0 04/29/2015 6.9 % 10/25/2014 6.9 % Hemoglobin A1C (POCT) (%) Date Value 12/22/2017 5.7 ) Assessment and Plan 1. Controlled type 2 diabetes mellitus without complication, with long-term current use of insulin (HCC) - ICD9: 250.00, V58.67, ICD10: E11.9, Z79.4 (primary diagnosis) Controlled. - Continue current medications. She preferred to postpone lipids and other labs for her yearly examination. - HEMOGLOBIN A1C (POC) - COMP METABOLIC PANEL - LIPID PANEL BASIC - HGB A1C 2. Essential hypertension, benign - ICD9: 401.1, ICD10: I10 - good control 3. Encounter for screening mammogram for breast cancer - ICD9: V76.12, ICD10: Z12.31 COMPOUNDED PRESCRIPTION- Mammogram order. During this patient visit I have spent approximately 15 minutes out of 20 in counseling regarding test results and coordinating care. Ravin Najera MD Referring Provider: SELF [[id number]] Allergies As of Date: 12/22/2017 Noted Allergy Reaction BPVICWT-NMI-OFF REDUCTASE INHIBIT*08/21/2013 14 - Other: See Comments Comments: noemi Ying, multiple statins tried. [place] 09/18/2008 SEASONAL ALLERGIES 10/21/2010 14 - Other: See Comments Comments: Runny nose Date Reviewed: 12/22/2017 Reviewed by: Renee Cannon LPN - Fully Assessed Reason for Visit: F/U 6 Month [444] Primary Visit Diagnosis:Controlled type 2 diabetes mellitus without complication, with long-term current use of insulin (HCC) [E11.9, Z79.4] Other Visit Diagnoses:Essential hypertension, benign [I10] Encounter for screening mammogram for breast cancer [Z12.31] Order(s):COMPOUNDED PRESCRIPTIONScreening bilateral mammogram. Dx:Z.31Disp: 1 EachRfl: 0 HEMOGLOBIN A1C (POC) [8136856] Order #: [id number]. #:[id number] COMP METABOLIC PANEL [SQCMP] Order #: [id number] FUTURE LIPID PANEL BASIC [SQLIPB] Order #: [id number] FUTURE HGB A1C [VEMVE0L] Order #: [id number] FUTURE Prescriptions as of 12/22/2017 Sig: VERAPAMIL ER (SR) 240 MG TABL* TAKE 1 TABLET DAILY LOSARTAN 100 MG TABLET TAKE 1 TABLET DAILY CLOBETASOL 0.05 % TOPICAL OIN* Apply 1 application to affect* HYDROCHLOROTHIAZIDE 25 MG TAB* Take 1 tablet by mouth once d* METFORMIN 1,000 MG TABLET Take one(1) tablet twice francis* IBUPROFEN 800 MG TABLET Take 1 tablet by mouth twice * INSULIN GLARGINE (U-100) 100 * Taking THIRTY (30) units at b* OMEGA-3 FATTY ACIDS 500 MG CA* Take 2 capsules by mouth once* BLOOD SUGAR DIAGNOSTIC STRIPS Test blood sugar(s) 3 times d* BLOOD GLUCOSE CONTROL HIGH AN* For testing as directed. DX * PEN NEEDLE, DIABETIC 31 GAUGE* 1 Each. USE ONE NEEDLE FOR EA* INSULIN LISPRO (U-100) 100 UN* Inject 15 Units subcutaneousl* INSULIN SYRINGE-NEEDLE U-100 * 1 Syringe once daily. MULTIVITAMIN TABLET Take one(1) tablet daily. 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 Dx:Z12.31 Disposition: Return in about 6 months (around 06/24/2018). Follow-up and Disposition History Recorded Encounter Status:Closed by RAVIN NAJERA MD on 12/22/17 CBC-COMPLETE BLOOD CNT Collected: 12/09/2017 Status: F Source: [place] NO DIFF 8:21 AM [facility] REPOSITORY TYPE CODE TESTS RESULT OUT OF RANGE REFERENCE UNITS LAB L100.1000 4.4-11.0 K/mm3 Normal WBC 7.9 LAB L100.1200 4.2-5.4 M/mm3 Normal RBC 4.93 LAB L100.1300 12.0-15.0 g/dl Normal HGB 13.1 LAB L100.1400 37-47 % Normal HCT 39.6 LAB L100.1500 81-99 fL Low MCV 80.3 LAB L100.1600 27.0-32.0 pg Low MCH 26.6 LAB L100.1700 32-36 g/gl Normal MCHC 33.1 LAB L100.1810 11.6-14.6 % Normal RDW CV 13.8 LAB L100.1820 35.1-43.9 fl Normal RDW SD 39.8 LAB L100.1900 150-450 K/mm3 Normal PLT 235 LAB L100.2000 6.2-12.0 fl Normal MPV 9.7 Performed By: #### L100.0500 #### [facility] [address] [place], [place], [id number] MICROALB:CREAT Collected: 12/09/2017 Status: F Source: [place] RATIO,RANDOM UR 8:21 AM [facility] REPOSITORY TYPE CODE TESTS RESULT OUT OF RANGE REFERENCE UNITS LAB L501.1200 NO RANGE EST. mg/dL Normal UR CREAT 218.00 LAB L502.0500 NO RANGE EST. mg/L Normal 12.5 MICROALBUMIN ,UR LAB L502.0600 <30 mg/g CRE mg/g CRE Normal 5.7 MALB:CREAT Performed By: #### L502.0250 #### [facility] [address] [facility]. [place], [place], [address] CNPTOUTREACH Observed: 12/07/2017 Status: COMPLETED Source: [place] 12:00 AM [facility] REPOSITORY Patient Outreach (INTMWH) FRANKLIN MOTA ([id number]) 1955 F Date Time Provider Department 12/07/17 RAVIN NAJERA [facility] During your visit today, we recorded the following information about you: Allergies As of Date: 12/07/2017 Noted Allergy Reaction PSYZMLF-ZFZ-MSN REDUCTASE INHIBIT*08/21/2013 14 - Other: See Comments Comments: noemi Ying, multiple statins tried. [place] 09/18/2008 SEASONAL ALLERGIES 10/21/2010 14 - Other: See Comments Comments: Runny nose Date Reviewed: 09/17/2017 Reviewed by: Reggie (Rn) THUY Munroe - Fully Assessed Visit Diagnosis:Medication management [Z79.899] Order(s):ALBUMIN/CREAT RATIO RND UR [SQUACR] Order #: [id number] FUTURE CBC [SQCBC] Order #: [id number] FUTURE Prescriptions as of 12/07/2017 Sig: X VERAPAMIL ER (SR) 240 MG TABL* TAKE 1 TABLET DAILY X LOSARTAN 100 MG TABLET TAKE 1 TABLET DAILY CLOBETASOL 0.05 % TOPICAL OIN* Apply 1 application to affect* X HYDROCHLOROTHIAZIDE 25 MG TAB* Take 1 tablet by mouth once d* X METFORMIN 1,000 MG TABLET Take one(1) tablet twice francis* IBUPROFEN 800 MG TABLET Take 1 tablet by mouth twice * INSULIN GLARGINE (U-100) 100 * Taking THIRTY (30) units at b* OMEGA-3 FATTY ACIDS 500 MG CA* Take 2 capsules by mouth once* BLOOD SUGAR DIAGNOSTIC STRIPS Test blood sugar(s) 3 times d* BLOOD GLUCOSE CONTROL HIGH AN* For testing as directed. DX * PEN NEEDLE, DIABETIC 31 GAUGE* 1 Each. USE ONE NEEDLE FOR EA* INSULIN LISPRO (U-100) 100 UN* Inject 15 Units subcutaneousl* INSULIN SYRINGE-NEEDLE U-100 * 1 Syringe once daily. MULTIVITAMIN TABLET Take one(1) tablet daily. 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 Patient did not experience a burn prior to discharge. Reggie Munroe RN NURSING PROG Observed: 09/17/2017 Status: COMPLETED Source: [place] 9:19 AM [facility] REPOSITORY HNO ID: [id number] Author: Reggie YanRn) THUY Munroe Service: Nursing Author Type: Registered Nurse Type: Nursing Progress Note Filed: 09/17/2017 9:20 AM Note Text: Tolerating snack, dressing to go home, spouse at her side. PT ED Observed: 09/17/2017 Status: COMPLETED Source: [place] 9:15 AM [facility] REPOSITORY HNO ID: [id number] Author: Reggie Reese) THUY Munroe Service: Nursing Author Type: Registered Nurse Type: Patient Education Filed: 09/17/2017 9:22 AM Note Text: POST OP LEARNING RESPONSE INSTRUCTION PROVIDED TO: Patient and family member METHOD OF INSTRUCTION: Individual instruction Written instruction - handouts Verbal instruction PATIENT / FAMILY RESPONSE: Information received as demonstrated by interest and questions FOLLOW-UP PLAN: Patient instructed to call with any further issues SUPPLEMENTAL MATERIAL: None REFERRAL (RECOMMENDATION): None Electronically Signed By: Reggie Munroe RN In Department: AMBULATORY SURGERY NURSING PROG Observed: 09/17/2017 Status: COMPLETED Source: [place] 9:00 AM [facility] REPOSITORY HNO ID: [id number] Author: Reggie YanRn) THUY Munroe Service: Nursing Author Type: Registered Nurse Type: Nursing Progress Note Filed: 09/17/2017 9:06 AM Note Text: to her side, Dr Ballesteros to visit, resting, no complaints, all safety maintained. NURSING PROG Observed: 09/17/2017 Status: COMPLETED Source: [place] 8:55 AM [facility] REPOSITORY HNO ID: [id number] Author: Reggie YanRn) THUY Munroe Service: Nursing Author Type: Registered Nurse Type: Nursing Progress Note Filed: 09/17/2017 9:06 AM Note Text: Pt into Endo recovery room in satisfactory condition. Resting on left side. Pt. sleepy but arousable. Abdomen soft, no complaints, all safety maintained. Will continue to monitor. NURSING PROG Observed: 09/17/2017 Status: COMPLETED Source: [place] 8:51 AM [facility] REPOSITORY HNO ID: [id number] Author: Adriana Weber RN Service: (none) Author Type: Registered Nurse Type: Nursing Progress Note Filed: 09/17/2017 8:51 AM Note Text: Patient did not experience a fall within the Intraoperative area. Patient did not experience a burn within the Intraoperative area. Adriana Weber RN NURSING PROG Observed: 09/17/2017 Status: COMPLETED Source: [place] 8:20 AM [facility] REPOSITORY HNO ID: [id number] Author: Haley Marks RN Service: (none) Author Type: Registered Nurse Type: Nursing Progress Note Filed: 09/17/2017 8:42 AM Note Text: [facility] PRE-OP NURSING HAND OFF NOTE SBAR Hand off given to Adriana Weber RN. Hand off was communicated verbally and at the patient's bedside and all questions were answered. FALLS/COPELAND Patient did not experience a fall within the Preoperative area. Patient did not experience a burn within the Preoperative area. Haley Marks RN HISTORY PHYSICAL Observed: 09/17/2017 Status: COMPLETED Source: [place] 8:14 AM [facility] REPOSITORY HNO ID: [id number] Author: Tamara Ballesteros Service: General Surgery Author Type: Physician Type: HANDP Filed: 09/17/2017 8:14 AM Note Text: HISTORY AND PHYSICAL ? Franklin Hernández Nakul 1955 ? REFERRING PHYSICIAN: Ravin Najera MD ? CHIEF COMPLAINT: Post Op ? HPI: The patient is a 61 year old female referred for endoscopy. Franklin notes no history of colon complaints. She denies any change in bowel habits, weight changes, blood in stools, black tarry stools or abdominal pain. She NOTES a family history of colon cancer, mother. Last colonoscopy was in 2006, overdue for the recommended 5-year follow-up. At last visit on 06/14/17 patient complained of a recurrent perirectal?abscess, underwent incision and drainage. She notes the pain is significantly resolved and is having only minimal drainage from this area currently. She is still doing sitz baths as instructed. ? Past medical history significant for insulin-dependent diabetes mellitus, hypertension, osteoarthritis, rectocele. She follows with Dr. Najera for her chronic medical conditions. She denies any chest pain, shortness of breath or recent hospitalizations. She denies any problems with sedation in the past. ?? ? PAST?MEDICAL?HISTORY PAST MEDICAL HISTORY Diagnosis Date - Chronic venous insufficiency 09/02/2010 - CIRCUMSCRIBE SCLERODERMA 11/04/2006 ? external genitalia - Essential hypertension, benign 10/29/2006 - Family history of malignant neoplasm of gastrointestinal tract 10/29/2006 - Internal hemorrhoids without mention of complication ? - Left knee DJD 10/05/2011 - Rectocele 10/29/2006 - Type II or unspecified type diabetes mellitus without mention of complication, not stated as uncontrolled 04/13/2005 ? ? PAST?SURGICAL?HISTORY PAST SURGICAL HISTORY Procedure Laterality Date - BIOPSY BREAST ? 1997 ? benign - COLONOSCOP W/ OR W/O BRS SPEC ? ? Colonoscopy - COLONOSCOP W/ OR W/O BRS SPEC ? 03/16/2007 ? Colonoscopy - TOTAL ABDOM HYSTERECTOMY ? 1997 ? still has ovaries ? ? ? CURRENT?MEDICATIONS ? Current Outpatient Prescriptions: clobetasol (TEMOVATE) 0.05 % ointment Apply 1 application to affected area daily at bedtime. TO AFFECTED AREA. hydroCHLOROthiazide (HYDRODIURIL, ESIDRIX) 25 mg tablet Take 1 tablet by mouth once daily. metFORMIN (GLUCOPHAGE) 1,000 mg tablet Take one(1) tablet twice daily with meals.90 day supply losartan (COZAAR) 100 mg tablet Take 1 tablet by mouth once daily. verapamil SR (CALAN SR, ISOPTIN SR) 240 mg CR tablet Take 1 tablet by mouth once daily. ibuprofen (MOTRIN) 800 mg tablet Take 1 tablet by mouth twice daily as needed for Pain. Take with food. insulin glargine (LANTUS) 100 unit/mL injection Taking THIRTY (30) units at bedtime. Fasting goal of less than 130. Macy-3 Fatty Acids (FISH OIL) 500 mg cap Take 2 capsules by mouth once daily. blood sugar diagnostic (FREESTYLE LITE STRIPS) test strip Test blood sugar(s) 3 times daily. Dx: E11.9 Insulin: Yes Blood Glucose Control High and Low (FREESTYLE CONTROL) soln For testing as directed. DX E11.9 insulin needles, DISPOSABLE, (PEN NEEDLE) 31 gauge x 5/16 ndle 1 Each. USE ONE NEEDLE FOR EACH DOSE THREE PER DAY Insulin Lispro, Human, (HUMALOG KWIKPEN) 100 unit/mL inpn Inject 15 Units subcutaneously three times daily before meals. Insulin Syringe-Needle U-100 (BD ULTRAFINE INSULIN) 1 mL 31 x 5/16 syrg 1 Syringe once daily. Multivitamin ORAL Tab Take one(1) tablet daily. ASPIRIN 81 MG TAB one tablet twice daily ? No current facility-administered medications for this visit. ? ALLERGIES: Abfenqc-Jda-Qrk Reductase Inhibitors; [place]; Seasonal Allergies ? PERSONAL HISTORY: SOCIAL?HISTORY Social History Marital status: Spouse name: tamara Years of education: Number of children: ? Occupational History Occupation Employer Comment [employer]* ? Social History Main Topics Smoking status: Never Smoker ? Smokeless status: Never Used Alcohol use: No Drug use: No Sexual activity: Yes Partners with: Male Comment: pt had hysterectomy 01/1998 ? ? FAMILY HISTORY: FAMILY?HISTORY FAMILY HISTORY Problem Relation Age of Onset - Colon Cancer Mother ? ? ? diagnosed age 56, age 56 - Hypertension Mother ? - Diabetes Mother ? - Coronary Artery Disease Father ? ? ? [place] age 62. - Prostate Cancer Father ? - Alzheimer's Disease Father ? - Alzheimer's Disease Paternal Grandfather ? - Diabetes Son ? - Diabetes Son ? - None Sister ? - None Brother ? ? ? REVIEW OF SYSTEMS GENERAL: No weight loss, malaise or fevers HEENT: Negative for frequent or significant headaches, No changes in hearing or vision, no nose bleeds or other nasal problems NECK: Negative for lumps, goiter, pain and significant neck swelling RESPIRATORY: Negative for cough, hemoptysis, wheezing, COPD, dyspnea or shortness of breath CARDIOVASCULAR: Negative for chest pain, leg swelling, hypertension, CHF or palpitations GI: No nausea, vomiting, or diarrhea SKIN: Negative for lesions, rash, and itching ? ?? PHYSICAL EXAMINATION: ? General: The patient is 61 year old female, well nourished, well hydrated in no acute distress. The patient is oriented to time, place, and person. ? VITALS: There were no vitals taken for this visit. There is no height or weight on file to calculate BMI. ? HEENT: Normal cephalic, ataumatic, pupils are equally round, sclera are anicteric, mucous membranes are moist, oropharynx is clear. Neck has no masses, asymmetry or lymphadenopathy. ? Respiratory: Clear to auscultation and percussion. Normal respiratory excursion and pattern. ? Cardiac: Examination is regular rate and rhythm. ? Abdominal exam: Soft, nontender, with no palpable masses. No hepatosplenomegaly. No palpable hernias. ? Rectal exam: exam deferred ? Extremities: no clubbing, cyanosis or edema. No adenopathy. ? Other: +right buttock incision healing nicely, minimal resolving induration without tenderness or erythema ? LABORATORY VALUES: As Noted ? RADIOLOGIC STUDIES: As Noted ? Assessment IMPRESSION: resolving perirectal abscess, need for high-risk screening colonoscopy due to family history of colon cancer ? PLAN: We will plan for screening colonoscopy in 1 month. The patient declines to schedule while in office today and states she will call in the next few weeks to set this up-she was given our operating room scheduler's direct line. We discussed the risks and benefits of the planned endoscopy. I have informed the patient that complications can occur including failure to complete the endoscopy and perforation. The patient had the opportunity to ask questions concerning the planned endoscopy. My staff has also explained the procedure to the patient in understandable terms and has given the patient printed material concerning the procedure. The patient freely consents to surgery. ? I plan to use golytely bowel preparation for endoscopy-orders placed by PCP ? The patient is instructed to consult with her PCP for instructions/adjustments to her diabetic medications during the bowel prep and procedure ? Patient verbalized understanding of all above and agreed with the plan ? ? Diagnoses: (Z80.0) Family history of colon cancer in mother (primary encounter diagnosis) (Z12.11) Encounter for screening for malignant neoplasm of colon ? My findings have been communicated to Dr. Najera via shared medical record. This note will be forwarded to Dr. Ravin Najera MD. ?? Return to Clinic: The patient is instructed to follow-up with me 1 week post operatively. ? I spent 25 minutes in the visit, with more than 50% of the total pull-ew-duqm time of the visit in counseling / coordination of care. ? Dillon Lemus PA-C PT ED Observed: 09/17/2017 Status: COMPLETED Source: [place] 8:02 AM [facility] REPOSITORY HNO ID: [id number] Author: Haley (Rn) THUY Marks Service: (none) Author Type: Registered Nurse Type: Patient Education Filed: 09/17/2017 8:03 AM Note Text: PRE OP LEARNING ASSESSMENT PROCEDURE/SURGERY: GI PROCEDURES: Colonoscopy READINESS TO LEARN COGNITIVE ABILITY: Alert and oriented MOTIVATION TO LEARN: Eager FAMILY SUPPORT: High - Very involved in pt care PATIENT LEARNS BEST BY: Multiple Methods FACTORS AFFECTING LEARNING: None PHYSICAL LIMITATIONS AFFECTING LEARNING: None Electronically Signed By: Haley Marks RN In Department: AMBULATORY SURGERY HOSP Observed: 08/25/2017 Status: COMPLETED Source: [place] 12:00 AM [facility] REPOSITORY Patient:Franklin Mota MRN: <[id number]> Height:5' 4(1.626 m) Weight:No patient weight recorded within the last 30 days. Outpatient Medications as of 09/17/17: verapamil SR (CALAN SR, ISOPTIN SR) 240 mg CR tablet clobetasol (TEMOVATE) 0.05 % ointment hydroCHLOROthiazide (HYDRODIURIL, ESIDRIX) 25 mg tablet metFORMIN (GLUCOPHAGE) 1,000 mg tablet losartan (COZAAR) 100 mg tablet ibuprofen (MOTRIN) 800 mg tablet insulin glargine (LANTUS) 100 unit/mL injection Macy-3 Fatty Acids (FISH OIL) 500 mg cap blood sugar diagnostic (FREESTYLE LITE STRIPS) test strip Blood Glucose Control High and Low (FREESTYLE CONTROL) soln insulin needles, DISPOSABLE, (PEN NEEDLE) 31 gauge x 5/16 ndle Insulin Lispro, Human, (HUMALOG KWIKPEN) 100 unit/mL inpn Insulin Syringe-Needle U-100 (BD ULTRAFINE INSULIN) 1 mL 31 x 5/16 syrg Multivitamin ORAL Tab ASPIRIN 81 MG TAB Admission/Clinic Administered Medications as of 09/17/17: lactated ringers infusion Problem List: Diabetes type 2, controlled (HCC) [E11.9] Essential hypertension, benign [I10] Family history of malignant neoplasm of gastrointestinal tract [Z80.0] Rectocele [N81.6] Chronic venous insufficiency [I87.2] Primary osteoarthritis of both knees [M17.0] Lichen sclerosus et atrophicus of the vulva [N90.4] Allergies: Ixeyqeu-Mzx-Yvl Reductase Inhibitors [place] Seasonal Allergies Date Verified: 09/17/17 Lab Values No results within the last 30 days for the following basenames: K,HCT Progress Notes ([facility]): Misty Asif RN 09/02/2017 2:41 PM Signed Patient reports she was instructed to call pcp for medication instruction prior to colonoscopy, scheduled with Dr. Ballesteros on 09-17-17. Reports she is currently taking lantus 30-36 u (depends on what she eats) daily at bedtime, Humalog 15 u with meals- only if she eats meals- sometimes she eats 2 meals, sometimes 3, metformin 1000 twice daily- only takes if eats a meal. She is a vegetarian. Was given diet instructions starting 5 days prior to colonoscopy, changes 3 days before, then day before clear liquids only. Please phone patient with reply. January Osullivan APRN.CNP 09/02/2017 3:54 PM Signed Lantus- take usual dose at your usual times day before and after procedure Humalog- The day before: take 1/2 usual dose with breakfast, lunch, dinner (okay with clear liquids). Do not take the day of procedure until supper time Metformin- Take usual dose the day before and day of procedure January Osullivan APRN.RIANNA Padron LPN 09/02/2017 4:46 PM Signed Patient notified of results and provider's instructions. Patient verbalizes understanding. Pt is questioning the metformin instructions. Since she will not be eating. (it says to take the metformin with food.) She is also asking able the liquids. She she drink with sugar or sugar free or diet? Darling Osullivan APRN.RIANNA 09/03/2017 7:27 AM Signed The clear liquids shouldn't be sugar free since that is all she will be eating and you will still be getting 1/2 your usual dose of mealtime insulin. The Metformin is okay to take without food but if it upsets your stomach then it is also okay to hold. ALIA Rice Cma 09/03/2017 9:42 AM Signed Left message for patient to call office back and to ask to speak with a nurse. Carmen Brady LPN 09/03/2017 10:44 AM Signed Patient notified and voiced her understanding. Progress Notes ([facility]): Renee Cannno LPN 09/01/2017 3:51 PM Signed Patient has been identified by name and date of : Yes Pharmacy phones for refill(s): Pending Prescriptions Disp Refills VERAPAMIL ER (SR) 240 MG TABLET,EXTENDED RELEASE 90 tablet 3 Sig: TAKE 1 TABLET DAILY MEGAN: Yes Date of last office visit in primary care: 06/11/2017 Last 2 Encounter Wt Readings: Date: Wt: 06/11/2017 92.5 kg (204 lb) 05/25/2017 94.5 kg (208 lb 6.4 oz) Previous labs/tests for medication: Blood Pressure: BUN (mg/dL) Date Value 04/29/2015 16 Sodium (mmol/L) Date Value 04/29/2015 140 Last 1 Encounter BP Readings: Date: BP: 06/11/2017 134/86 Please advise. Thank you. Renee Osullivan APRN.CABLE STRANDER 09/02/2017 7:50 AM Signed Please call patient and encourage him to reschedule canceled appointment. The following approved medication requests have been transmitted electronically. Signed Prescriptions Disp Refills verapamil SR (CALAN SR, ISOPTIN SR) 240 mg CR tablet 90 tablet 0 Sig: TAKE 1 TABLET DAILY MEGAN: No Authorizing Provider: JANUARY OSULLIVAN (RIANNA) ALIA Rice Cma 09/02/2017 8:42 AM Signed PSR please call patient and assist with scheduling appointment. Thank you. Carmen Squires Cma Araceli Huggins Psr 09/02/2017 2:02 PM Signed 1st attempt: left message to call and schedule appointment with physician. Sharon Daya, PSR 09/03/2017 2:26 PM Signed Patient scheduled 12/22 PROGRESS Observed: 06/21/2017 Status: COMPLETED Source: [place] 8:14 AM [facility] [place] REPOSITORY O ID: [id number] Author: Dillon Lemus (Pa) Service: (none) Author Type: Physician Hose Sprayer Type: Progress Notes Filed: 06/21/2017 2:51 PM Note Text: HISTORY AND PHYSICAL Franklin Mota 1955 REFERRING PHYSICIAN: Ravin Najera MD CHIEF COMPLAINT: Post Op HPI: The patient is a 61 year old female referred for endoscopy. Franklin notes no history of colon complaints. She denies any change in bowel habits, weight changes, blood in stools, black tarry stools or abdominal pain. She NOTES a family history of colon cancer, mother. Last colonoscopy was in 2006, overdue for the recommended 5-year follow-up. At last visit on 06/14/17 patient complained of a recurrent perirectal abscess, underwent incision and drainage. She notes the pain is significantly resolved and is having only minimal drainage from this area currently. She is still doing sitz baths as instructed. Past medical history significant for insulin-dependent diabetes mellitus, hypertension, osteoarthritis, rectocele. She follows with Dr. Najera for her chronic medical conditions. She denies any chest pain, shortness of breath or recent hospitalizations. She denies any problems with sedation in the past. ? PAST MEDICAL HISTORY Diagnosis Date - Chronic venous insufficiency 09/02/2010 - CIRCUMSCRIBE SCLERODERMA 11/04/2006 external genitalia - Essential hypertension, benign 10/29/2006 - Family history of malignant neoplasm of gastrointestinal tract 10/29/2006 - Internal hemorrhoids without mention of complication - Left knee DJD 10/05/2011 - Rectocele 10/29/2006 - Type II or unspecified type diabetes mellitus without mention of complication, not stated as uncontrolled 04/13/2005 PAST SURGICAL HISTORY Procedure Laterality Date - BIOPSY BREAST 1997 benign - COLONOSCOP W/ OR W/O [facility] SPEC Colonoscopy - COLONOSCOP W/ OR W/O [facility] SPEC 03/16/2007 Colonoscopy - TOTAL ABDOM HYSTERECTOMY 1997 still has ovaries Current Outpatient Prescriptions: clobetasol (TEMOVATE) 0.05 % ointment Apply 1 application to affected area daily at bedtime. TO AFFECTED AREA. hydroCHLOROthiazide (HYDRODIURIL, ESIDRIX) 25 mg tablet Take 1 tablet by mouth once daily. metFORMIN (GLUCOPHAGE) 1,000 mg tablet Take one(1) tablet twice daily with meals.90 day supply losartan (COZAAR) 100 mg tablet Take 1 tablet by mouth once daily. verapamil SR (CALAN SR, ISOPTIN SR) 240 mg CR tablet Take 1 tablet by mouth once daily. ibuprofen (MOTRIN) 800 mg tablet Take 1 tablet by mouth twice daily as needed for Pain. Take with food. insulin glargine (LANTUS) 100 unit/mL injection Taking THIRTY (30) units at bedtime. Fasting goal of less than 130. Macy-3 Fatty Acids (FISH OIL) 500 mg cap Take 2 capsules by mouth once daily. blood sugar diagnostic (FREESTYLE LITE STRIPS) test strip Test blood sugar(s) 3 times daily. Dx: E11.9 Insulin: Yes Blood Glucose Control High and Low (FREESTYLE CONTROL) soln For testing as directed. DX E11.9 insulin needles, DISPOSABLE, (PEN NEEDLE) 31 gauge x 5/16 ndle 1 Each. USE ONE NEEDLE FOR EACH DOSE THREE PER DAY Insulin Lispro, Human, (HUMALOG KWIKPEN) 100 unit/mL inpn Inject 15 Units subcutaneously three times daily before meals. Insulin Syringe-Needle U-100 (BD ULTRAFINE INSULIN) 1 mL 31 x 5/16 syrg 1 Syringe once daily. Multivitamin ORAL Tab Take one(1) tablet daily. ASPIRIN 81 MG TAB one tablet twice daily No current facility-administered medications for this visit. ALLERGIES: Ybzyfte-Njl-Toj Reductase Inhibitors; [place]; Seasonal Allergies PERSONAL HISTORY: Social History Marital status: Spouse name: tamara Years of education: Number of children: Occupational History Occupation Employer Comment [employer]* Social History Main Topics Smoking status: Never Smoker Smokeless status: Never Used Alcohol use: No Drug use: No Sexual activity: Yes Partners with: Male Comment: pt had hysterectomy 01/1998 FAMILY HISTORY: FAMILY HISTORY Problem Relation Age of Onset - Colon Cancer Mother diagnosed age 56, age 56 - Hypertension Mother - Diabetes Mother - Coronary Artery Disease Father [place] age 62. - Prostate Cancer Father - Alzheimer's Disease Father - Alzheimer's Disease Paternal Grandfather - Diabetes Son - Diabetes Son - None Sister - None Brother REVIEW OF SYSTEMS GENERAL: No weight loss, malaise or fevers HEENT: Negative for frequent or significant headaches, No changes in hearing or vision, no nose bleeds or other nasal problems NECK: Negative for lumps, goiter, pain and significant neck swelling RESPIRATORY: Negative for cough, hemoptysis, wheezing, COPD, dyspnea or shortness of breath CARDIOVASCULAR: Negative for chest pain, leg swelling, hypertension, CHF or palpitations GI: No nausea, vomiting, or diarrhea SKIN: Negative for lesions, rash, and itching PHYSICAL EXAMINATION: General: The patient is 61 year old female, well nourished, well hydrated in no acute distress. The patient is oriented to time, place, and person. VITALS: There were no vitals taken for this visit. There is no height or weight on file to calculate BMI. HEENT: Normal cephalic, ataumatic, pupils are equally round, sclera are anicteric, mucous membranes are moist, oropharynx is clear. Neck has no masses, asymmetry or lymphadenopathy. Respiratory: Clear to auscultation and percussion. Normal respiratory excursion and pattern. Cardiac: Examination is regular rate and rhythm. Abdominal exam: Soft, nontender, with no palpable masses. No hepatosplenomegaly. No palpable hernias. Rectal exam: exam deferred Extremities: no clubbing, cyanosis or edema. No adenopathy. Other: +right buttock incision healing nicely, minimal resolving induration without tenderness or erythema LABORATORY VALUES: As Noted RADIOLOGIC STUDIES: As Noted Assessment IMPRESSION: resolving perirectal abscess, need for high-risk screening colonoscopy due to family history of colon cancer PLAN: We will plan for screening colonoscopy in 1 month. The patient declines to schedule while in office today and states she will call in the next few weeks to set this up-she was given our operating room scheduler's direct line. We discussed the risks and benefits of the planned endoscopy. I have informed the patient that complications can occur including failure to complete the endoscopy and perforation. The patient had the opportunity to ask questions concerning the planned endoscopy. My staff has also explained the procedure to the patient in understandable terms and has given the patient printed material concerning the procedure. The patient freely consents to surgery. I plan to use golytely bowel preparation for endoscopy-orders placed by PCP The patient is instructed to consult with her PCP for instructions/adjustments to her diabetic medications during the bowel prep and procedure Patient verbalized understanding of all above and agreed with the plan Diagnoses: (Z80.0) Family history of colon cancer in mother (primary encounter diagnosis) (Z12.11) Encounter for screening for malignant neoplasm of colon My findings have been communicated to Dr. Najera via shared medical record. This note will be forwarded to Dr. Ravin Najera MD. Return to Clinic: The patient is instructed to follow-up with me 1 week post operatively. I spent 25 minutes in the visit, with more than 50% of the total ioyn-ev-tqpn time of the visit in counseling / coordination of care. Dillon Lemus PA-C CNOV Observed: 06/21/2017 Status: COMPLETED Source: [place] 8:00 AM [facility] REPOSITORY Office Visit (GENSWS) FRANKLIN MOTA ([id number]) 1955 F Date Time Provider Department 06/21/17 8:00 AM DILLON LEMUS (PA) During your visit today, we recorded the following information about you: Dillon Lemus PA-C 06/21/2017 2:51 PM Signed HISTORY AND PHYSICAL Franklin Mota 1955 REFERRING PHYSICIAN: Ravin Najera MD CHIEF COMPLAINT: Post Op HPI: The patient is a 61 year old female referred for endoscopy. Franklin notes no history of colon complaints. She denies any change in bowel habits, weight changes, blood in stools, black tarry stools or abdominal pain. She NOTES a family history of colon cancer, mother. Last colonoscopy was in 2006, overdue for the recommended 5-year follow-up. At last visit on 06/14/17 patient complained of a recurrent perirectal abscess, underwent incision and drainage. She notes the pain is significantly resolved and is having only minimal drainage from this area currently. She is still doing sitz baths as instructed. Past medical history significant for insulin-dependent diabetes mellitus, hypertension, osteoarthritis, rectocele. She follows with Dr. Najera for her chronic medical conditions. She denies any chest pain, shortness of breath or recent hospitalizations. She denies any problems with sedation in the past. ? PAST MEDICAL HISTORY Diagnosis Date - Chronic venous insufficiency 09/02/2010 - CIRCUMSCRIBE SCLERODERMA 11/04/2006 external genitalia - Essential hypertension, benign 10/29/2006 - Family history of malignant neoplasm of gastrointestinal tract 10/29/2006 - Internal hemorrhoids without mention of complication - Left knee DJD 10/05/2011 - Rectocele 10/29/2006 - Type II or unspecified type diabetes mellitus without mention of complication, not stated as uncontrolled 04/13/2005 PAST SURGICAL HISTORY Procedure Laterality Date - BIOPSY BREAST 1997 benign - COLONOSCOP W/ OR W/O [facility] SPEC Colonoscopy - COLONOSCOP W/ OR W/O [facility] SPEC 03/16/2007 Colonoscopy - TOTAL ABDOM HYSTERECTOMY 1997 still has ovaries Current Outpatient Prescriptions: clobetasol (TEMOVATE) 0.05 % ointment Apply 1 application to affected area daily at bedtime. TO AFFECTED AREA. hydroCHLOROthiazide (HYDRODIURIL, ESIDRIX) 25 mg tablet Take 1 tablet by mouth once daily. metFORMIN (GLUCOPHAGE) 1,000 mg tablet Take one(1) tablet twice daily with meals.90 day supply losartan (COZAAR) 100 mg tablet Take 1 tablet by mouth once daily. verapamil SR (CALAN SR, ISOPTIN SR) 240 mg CR tablet Take 1 tablet by mouth once daily. ibuprofen (MOTRIN) 800 mg tablet Take 1 tablet by mouth twice daily as needed for Pain. Take with food. insulin glargine (LANTUS) 100 unit/mL injection Taking THIRTY (30) units at bedtime. Fasting goal of less than 130. Macy-3 Fatty Acids (FISH OIL) 500 mg cap Take 2 capsules by mouth once daily. blood sugar diagnostic (FREESTYLE LITE STRIPS) test strip Test blood sugar(s) 3 times daily. Dx: E11.9 Insulin: Yes Blood Glucose Control High and Low (FREESTYLE CONTROL) soln For testing as directed. DX E11.9 insulin needles, DISPOSABLE, (PEN NEEDLE) 31 gauge x 5/16ANDquot; ndle 1 Each. USE ONE NEEDLE FOR EACH DOSE THREE PER DAY Insulin Lispro, Human, (HUMALOG KWIKPEN) 100 unit/mL inpn Inject 15 Units subcutaneously three times daily before meals. Insulin Syringe-Needle U-100 (BD ULTRAFINE INSULIN) 1 mL 31 x 5/16ANDquot; syrg 1 Syringe once daily. Multivitamin ORAL Tab Take one(1) tablet daily. ASPIRIN 81 MG TAB one tablet twice daily No current facility-administered medications for this visit. ALLERGIES: Yhbybid-Meu-Qhp Reductase Inhibitors; [place]; Seasonal Allergies PERSONAL HISTORY: Social History Marital status: Spouse name: tamara Years of education: Number of children: Occupational History Occupation Employer Comment [employer]* Social History Main Topics Smoking status: Never Smoker Smokeless status: Never Used Alcohol use: No Drug use: No Sexual activity: Yes Partners with: Male Comment: pt had hysterectomy 01/1998 FAMILY HISTORY: FAMILY HISTORY Problem Relation Age of Onset - Colon Cancer Mother diagnosed age 56, age 56 - Hypertension Mother - Diabetes Mother - Coronary Artery Disease Father [place] age 62. - Prostate Cancer Father - Alzheimer's Disease Father - Alzheimer's Disease Paternal Grandfather - Diabetes Son - Diabetes Son - None Sister - None Brother REVIEW OF SYSTEMS GENERAL: No weight loss, malaise or fevers HEENT: Negative for frequent or significant headaches, No changes in hearing or vision, no nose bleeds or other nasal problems NECK: Negative for lumps, goiter, pain and significant neck swelling RESPIRATORY: Negative for cough, hemoptysis, wheezing, COPD, dyspnea or shortness of breath CARDIOVASCULAR: Negative for chest pain, leg swelling, hypertension, CHF or palpitations GI: No nausea, vomiting, or diarrhea SKIN: Negative for lesions, rash, and itching PHYSICAL EXAMINATION: General: The patient is 61 year old female, well nourished, well hydrated in no acute distress. The patient is oriented to time, place, and person. VITALS: There were no vitals taken for this visit. There is no height or weight on file to calculate BMI. HEENT: Normal cephalic, ataumatic, pupils are equally round, sclera are anicteric, mucous membranes are moist, oropharynx is clear. Neck has no masses, asymmetry or lymphadenopathy. Respiratory: Clear to auscultation and percussion. Normal respiratory excursion and pattern. Cardiac: Examination is regular rate and rhythm. Abdominal exam: Soft, nontender, with no palpable masses. No hepatosplenomegaly. No palpable hernias. Rectal exam: exam deferred Extremities: no clubbing, cyanosis or edema. No adenopathy. Other: +right buttock incision healing nicely, minimal resolving induration without tenderness or erythema LABORATORY VALUES: As Noted RADIOLOGIC STUDIES: As Noted Assessment IMPRESSION: resolving perirectal abscess, need for high-risk screening colonoscopy due to family history of colon cancer PLAN: We will plan for screening colonoscopy in 1 month. The patient declines to schedule while in office today and states she will call in the next few weeks to set this up-she was given our operating room scheduler's direct line. We discussed the risks and benefits of the planned endoscopy. I have informed the patient that complications can occur including failure to complete the endoscopy and perforation. The patient had the opportunity to ask questions concerning the planned endoscopy. My staff has also explained the procedure to the patient in understandable terms and has given the patient printed material concerning the procedure. The patient freely consents to surgery. I plan to use golytely bowel preparation for endoscopy-orders placed by PCP The patient is instructed to consult with her PCP for instructions/adjustments to her diabetic medications during the bowel prep and procedure Patient verbalized understanding of all above and agreed with the plan Diagnoses: (Z80.0) Family history of colon cancer in mother (primary encounter diagnosis) (Z12.11) Encounter for screening for malignant neoplasm of colon My findings have been communicated to Dr. Najera via shared medical record. This note will be forwarded to Dr. Ravin Najera MD. Return to Clinic: The patient is instructed to follow-up with me 1 week post operatively. I spent 25 minutes in the visit, with more than 50% of the total xsri-wj-mdrh time of the visit in counseling / coordination of care. Dillon Lemus PA-C Referring Provider: RAVIN NAJERA [[id number]] Allergies As of Date: 06/21/2017 Noted Allergy Reaction [id number] REDUCTASE INHIBIT*08/21/2013 14 - Other: See Comments Comments: Crampsnoemi, multiple statins tried. [place] 09/18/2008 SEASONAL ALLERGIES 10/21/2010 14 - Other: See Comments Comments: Runny nose Date Reviewed: 06/21/2017 Reviewed by: Dillon (Savanna Lemus - Fully Assessed Reason for Visit: Post Op [174] Primary Visit Diagnosis:Family history of colon cancer in mother [Z80.0] Other Visit Diagnosis:Encounter for screening for malignant neoplasm of colon [Z12.11] Prescriptions as of 06/21/2017 Sig: CLOBETASOL 0.05 % TOPICAL OIN* Apply 1 application to affect* HYDROCHLOROTHIAZIDE 25 MG TAB* Take 1 tablet by mouth once d* METFORMIN 1,000 MG TABLET Take one(1) tablet twice francis* LOSARTAN 100 MG TABLET Take 1 tablet by mouth once d* VERAPAMIL ER (SR) 240 MG TABL* Take 1 tablet by mouth once d* IBUPROFEN 800 MG TABLET Take 1 tablet by mouth twice * INSULIN GLARGINE 100 UNIT/ML * Taking THIRTY (30) units at b* OMEGA-3 FATTY ACIDS 500 MG CA* Take 2 capsules by mouth once* BLOOD SUGAR DIAGNOSTIC STRIPS Test blood sugar(s) 3 times d* BLOOD GLUCOSE CONTROL HIGH AN* For testing as directed. DX * PEN NEEDLE, DIABETIC 31 GAUGE* 1 Each. USE ONE NEEDLE FOR EA* INSULIN LISPRO 100 UNIT/ML TANG* Inject 15 Units subcutaneousl* INSULIN SYRINGE-NEEDLE U-100 * 1 Syringe once daily. MULTIVITAMIN TABLET Take one(1) tablet daily. 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] INVALID FOR*04/19/2013 Chronic venous insufficiency [I87.2] INVALID FOR* Primary osteoarthritis of both knees [M17.0] INVALID FOR* Lichen sclerosus et atrophicus of the vulva [N9*INVALID FOR* Encounter Status:Closed by DILLON LEMUS PA-C on 06/21/17 ALLERGIES ALLERGIES DATE TYPE / CODE NAME / CODE REACTION SEVERITY SOURCE 08/21/2013 Drug [id number] OTHER: SEE C Med [facility] Class/35869 REDUCTASE [address] [place] 1003(SNOMED INHIBITORS Repository CT) 10/21/2010 Environ/420 SEASONAL OTHER: SEE C [facility] [id number](SNOM ALLERGIES [place] [facility]) Repository 09/18/2008 Environ/420 [place] [facility] [id number](SNOM [facility] ED CT) Repository ENCOUNTERS ENCOUNTERS ADMIT/DISCHARGE ACCOUNT ADMITTING ENCOUNTER LOCATION SOURCE NUMBER CLASS 06/14/2018/06/14/[id number] Repository 06/14/2018/06/15/[id number] Repository 06/08/2018 [id number] [facility] ing:LAB.FUTUR Repository E 12/31/2017 [id number] [facility] ing:OPBI Repository 12/22/2017/12/24/[id number] Repository 12/10/2017 [id number] [facility] ing:LAB.FUTUR Repository E 12/09/2017 [id number] [facility] ing:LAB Repository 12/03/2017 [id number] [facility] ing:LAB.FUTUR Repository E 09/17/2017/09/18/[id number] Repository 06/21/2017/06/24/[id number] Repository PAYERS PAYERS ENCOUNTER GUARANTOR PAYER SUBSCRIBER SOURCE 06/08/2018 TAMARA Foley [id number] Insurance:MEDICAL [place]DOB: [facility] [place] Number: Repository [id number]: 330 [id number] [phone] (HP) Date:[id number] [address] [address]ZL: 06/08/2018 Secondary NOT GIVENUNK [place] Insurance:SELF PAY [facility] Number: Effective Repository Date:2018-06-08 12/31/2017 Tamara Zayas Primary FRANKLIN Hernández Alaina [id number] Insurance:MEDICAL TEMPLETONDOB: [facility] [place] Number: Repository [id number]: 330 [id number] [phone] (HP) Date:[id number] [address] [address]BU: 12/31/2017 Secondary NOT GIVENUNK [place] Insurance:SELF PAY [facility] Number: Effective Repository Date:2017-12-14 12/10/2017 Tamara Zayas Primary FRANKLIN Hernández Alaina [id number] Insurance:MEDICAL TEMPLETONDOB: [facility] 9513[place] Number: Repository [id number]: 330 [id number] [phone] (HP) Date:[id number] [address] [address]UN: 12/10/2017 Secondary NOT GIVENUNK [place] Insurance:SELF PAY [facility] Number: Effective Repository Date:2017-12-10 12/09/2017 Tamara Zayas Primary FRANKLIN Hernández Alaina [id number] Insurance:MEDICAL TEMPLETONDOB: [facility] 8629[place] Number: Repository [id number]: 330 [id number] [phone] (HP) Date:[id number] [address] [address]MV: 12/09/2017 Secondary NOT GIVENUNK [place] Insurance:SELF PAY [facility] Number: Effective Repository Date:2017-12-09 12/03/2017 Tamara Zayas Primary FRANKLIN [place] [id number] Insurance:MEDICAL TEMPLETONDOB: [facility] 9355[place]12[place] Number: Repository [id number]: (915) [id number] [phone] () Date:[id number] [address]TA: 12/03/2017 Secondary NOT GIVENDEEDEE Foley Insurance:SELF PAY [facility] Number: Effective Repository Date:2017-12-03
== END ==
PROVIDERS: Family Provider Internal Medicine; PCP Internal Medicine; Referring Provider Internal Medicine; Visit Provider Internal Medicine
DX: E11.9 Type 2 diabetes mellitus without complications (principal); Z79.4 Long term (current) use of insulin
CPT/HCPCS: 36415; 80053; 80061; 83036

== ENCOUNTER → 2018-11-23 | Outpatient (CLI) | payer OTHER, SELFPAY ==
[2018-11-23 12:48] LABS: Hematocrit 39.9 % (37-47); Hemoglobin 13.3 g/dl (12.0-15.0); Mean Corp Hgb Conc 33.3 g/gl (32-36); Mean Corpuscular Hgb 26.5 pg (27.0-32.0); Mean Corpuscular Volume 79.5 fL (81-99); Mean Platelet Vol. 10.5 fl (6.2-12.0); Platelet Count 246 K/mm3 (150-450); RBC Distribution Width CV 13.6 % (11.6-14.6); RBC Distribution Width SD 38.3 fl (35.1-43.9); Red Blood Count 5.02 M/mm3 (4.2-5.4); White Blood Count 7.3 K/mm3 (4.4-11.0)
[2018-11-23 12:54] LABS: Scan Indicated on CBC? Y/N NO
[2018-11-23 12:56] LABS: Hemoglobin A1c 6.5 % (4.2-6.3)
[2018-11-23 13:12] LABS: Microalbumin,Random Urine 15.2 mg/L (NO RANGE EST.); Microalbumin:Creatinine Ratio 8.2 mg/g CRE (<30 mg/g CRE)
[2018-11-23 13:18] LABS: Anion Gap 8 (5-15); BUN 15 mg/dL (7-18); Calcium,Total 8.7 mg/dL (8.5-10.1); Chloride 105 mmol/L (98-107); Cholesterol 170 mg/dL (200); Creatinine, Serum 0.79 mg/dL (0.55-1.02); EST Glomerular Filtration Rate 78 mL/min (>60); Est Glom Filt Rate - Afr Amer 94 mL/min (>60); Glucose 112 mg/dL (74-106); High Density Lipoprotein 49 mg/dL; Potassium 3.6 mmol/L (3.5-5.1); Sodium Level 139 mmol/L (136-145); Triglycerides 145 mg/dL; Very Low Density Lipoprotein 29 mg/dL (5-40)
== END | disposition home or self-care (01) ==
LOC: MTLAB 10:06
PROVIDERS: Family Provider Internal Medicine; PCP Internal Medicine; Referring Provider Internal Medicine; Visit Provider Internal Medicine
DX: E11.9 Type 2 diabetes mellitus without complications (principal); Z79.899 Other long term (current) drug therapy; Z79.4 Long term (current) use of insulin
CPT/HCPCS: 36415; 80048; 80061; 82043; 82570; 83036; 85027

== ENCOUNTER 2020-08-01 09:09 | Outpatient (RCR) | payer MEDICARE, SELFPAY ==
[2020-08-01] MEDS: COVID-19 VACC, MRNA(PFIZER)/PF 30 MCG/0.3 ML SYRINGE IM (07:13)
[2020-08-22] MEDS: COVID-19 VACC, MRNA(PFIZER)/PF 30 MCG/0.3 ML SYRINGE IM (07:01)
== END 2020-10-29 23:59 ==
LOC: IMMUN 09:09
PROVIDERS: PCP Internal Medicine; Visit Provider Family Medicine
DX: Z23 Encounter for immunization (principal)
CPT/HCPCS: 0001A; 0002A; 91300

== ENCOUNTER 2023-11-02 08:38 | Observation (INO) | payer MEDICARE, SELFPAY ==
[2023-11-02 08:40] VITALS: BP 123/56; PULSE 81; RESP 16; TEMP 36.6; O2SAT 98; BMI 27.5
--- NOTE | 2023-11-02 08:44 | ED.VIS.FALL ---
HPI HPI - Fall History of Present Illness Chief Complaint: Fall Informant: patient, spouse/S.O. and EMS Narrative Narrative: 68-year-old female lives at home with her , she has had advanced dementia progressing for several years. EMS brings her because of an accidental fall. had her standing, she refused to go to the bathroom all morning and eventually soaked her pants, and he was trying to change her before she got there couches and chairs soiled, so she was standing and he was trying to wiggle her pants off of her, she has been very combative lately for him and tried to get away from him and in doing so fell down to the floor. He called to have her evaluated, and states he is really having trouble caring for her at home and is looking for other options now. He has not been researching this at home yet. When asked about hospice he has not considered this yet. He states as of recently every month she seems to be worse and worse. Stopped giving her insulin months ago because she refused to take it and at that time she was refusing to eat. When she was eating he was giving it to her against her will, causing more issues. He did not want to make her hypoglycemic so we stopped giving it. Now she is eating but still not taking her insulin. Blood sugar per EMS today was 240. He states she did not hit her head when she fell. [facility] Medical History (Updated 11/02/23 @ 12:[address] Isidro Dacosta MD) Type 2 diabetes mellitus Advanced dementia Allergy/AdvReac Type Severity Reaction Status Date / Time No Known Allergies Allergy Verified 11/02/23 08:45 Social History (Updated 11/02/23 @ 08:[address] Isidro Dacosta MD) household members: spouse Smoking Status: Never smoker ROS ROS ED Review of Systems ROS Unobtainable: due to mental condition EXAM Physical Exam Const Vital Signs: 11/02/23 08:38 11/02/23 08:40 Temperature 97.8 F Temperature Source Temporal Pulse Rate 81 Respiratory Rate 16 Respiratory Effort Normal Respiratory Depth Normal Respiratory Pattern Normal Blood Pressure 123/56 H Blood Pressure Mean 78 Pulse Ox 98 Oxygen Delivery Method Room Air Room Air Positive well nourished and well developed General Appearance ED: well developed and NAD HEENT Reports moist mucous membranes normocephalic and atraumatic Eyes PERRL and EOMs intact bilaterally Neck full ROM and supple Resp normal respiratory effort and clear to auscultation bilaterally Cardio regular rate, regular rhythm and no murmurs GI non-tender and non-distended Auscultation: normoactive bowel sounds Palpation: soft Narrative: Pelvis stable AP compression no pain Back/Spine no CVA tenderness General Back: other FROM Extremity normal to inspection General Extremety ED: Negative for edema, pulses abnormal or tenderness General Extremity: Negative for edema or pulses abnormal Neuro CN's II-XII intact bilaterally and no sensory deficits noted Neuro Narrative: Moving all 4 extremities equally. Keenly alert and agitated, not able to assess orientation patient refuses to answer questions [place] Coma Scale: document GCS findings Spontaneous Obeys Commands Confused 14 Sensorium / Orientation: awake, alert and orientation impaired Motor Exam: strength 5/5 throughout Psych Psych Narrative: Confused and very agitated at recent baseline per Skin no rashes or lesions noted and no wounds MDM MDM MDM Narrative Medical decision making narrative: In discussing further with the , reassuring him about any potential injuries, I do not think she has any, given her behavior and difficulty in caring for her at home, he is wanting placement at the least. He agreed with sedating her and testing her for medical issues acutely. We were actually able to get blood work and EKG without sedating her, however we were not able to get a urine sample without doing so. Since we had an IV, we canceled the Versed 5 mg IM and instead gave her 2 mg IV for anxiolysis. It did nothing, and then she became extremely agitated swinging at staff. At this time Geodon 10 mg IM was ordered to help her settle down, for the safety of herself and staff, and in order to obtain a urine specimen and a CT of the head. This was done uneventfully. I reviewed the head CT images and the report which I agree with, it is negative for any acute. I reviewed her chest x-ray 1 view on my interpretation it is negative for pneumonia radiology was in agreement. Her urine shows signs of infection, not a lot of pyuria but I am going to assume it is infected until the culture returns, giving her a dose of Rocephin for right now and plan is for admission. Per , we discussed at length DNR status he wanted her to be DNR Comfort Care arrest no intubation, he signed a form and we entered an order. We discussed DNR comfort care status and he agreed he was not ready for that. Lab Data Attestation: I reviewed the patient's lab results. Labs: Laboratory Results - last 24 hr 11/02/23 11/02/23 09:42 11:49 WBC 6.4 RBC 4.54 Hgb 12.3 Hct 37.1 MCV 81.7 MCH 27.1 MCHC 33.2 RDW Std Deviation 38.7 RDW Coeff of Mirian 13.0 Plt Count 270 MPV 10.0 Immature Gran % (Auto) 0.500 Neut % (Auto) 63.4 Lymph % (Auto) 27.4 Reeves % (Auto) 7.1 Eos % (Auto) 1.1 Baso % (Auto) 0.5 Absolute Neuts (auto) 4.1 Absolute Lymphs (auto) 1.75 Nucleated RBC % 0 Sodium 135 L Potassium 3.4 L Chloride 101 Carbon Dioxide 29.0 Anion Gap 5 BUN 13 Creatinine 0.85 Estim Creat Clear Calc 65.57 Est GFR (MDRD) Af Amer 86 Est GFR (MDRD) Non-Af 71 BUN/Creatinine Ratio 15.3 Glucose 238 H Lactic Acid 0.8 Calcium 8.6 Total Bilirubin 1.00 AST 9 L ALT 11 L Alkaline Phosphatase 63 Troponin I High Sens 4 Total Protein 6.3 L Albumin 3.1 L Globulin 3.2 Albumin/Globulin Ratio 1.0 TSH 1.20 Urine Color Yellow Urine Clarity Cloudy Urine pH 6.0 Ur Specific Superior 1.010 Urine Protein Negative Urine Glucose (UA) 100 H Urine Ketones Negative Urine Occult Blood Negative Urine Nitrite Negative Urine Bilirubin Negative Urine Urobilinogen Normal Ur Leukocyte Esterase 500 H Urine RBC 0 SEEN Urine WBC 5-10 SEEN Ur Squamous Epith Cells 0-5 SEEN Urine Bacteria 4+ Urine Mucus 0 SEEN Ur Drug Screen Comment Ethyl Alcohol < 3.0 Radiography Diagnostic Testing: Clinical Impression(s) from Imaging Studies Brain CT 11/02/23 09:00 IMPRESSION: No acute intracranial process. Electronically Signed: Janet Rodriguez MD at 11:48 EDT , Chest X-Ray 11/02/23 11:37 IMPRESSION: Cardiomegaly. Electronically Signed: Janet Rodriguez MD at 11:53 EDT , Rhythm Strip Rhythm Strip: Sinus Rhythm Rate: 73 Ectopy: None EKG Initial EKG: Attestation: I personally reviewed and interpreted this EKG as follows: Interpretation: Sinus Rhythm and No Acute Injury Pattern Comments: nml EKG Management Discussion w/another healthcare provider: Hospitalist Discharge Plan Dx/Rx/DC Orders Clinical Impression: Acute UTI, Dementia with behavioral disturbance, Accidental fall Disposition Disposition: Acute Care Hospital [facility]
--- NOTE | 2023-11-02 09:00 | EKG12_ITS ---
Test Reason : FALL Blood Pressure : / mmHG Vent. Rate : 073 BPM Atrial Rate : 073 BPM P-R Int : 140 ms QRS Dur : 074 ms QT Int : 426 ms P-R-T Axes : 046 009 028 degrees QTc Int : 469 ms Normal sinus rhythm Normal ECG Confirmed by Taj Avery ([id number]), sports editor DILLON KAUFMAN ([id number]) on 11/03/2023 8:44:59 AM Referred By: Confirmed By:Taj Avery
--- NOTE | 2023-11-02 09:00 | CT_ITS ---
INDICATION: fall, confusion EXAMINATION: CT BRAIN - CT Head or Brain W/O Contrast Injection TECHNIQUE: Multiple axial images were obtained of the head without intravenous contrast. The protocol utilizes one or more of the following dose reduction techniques: automated exposure control, adjustment of mA and/or kV according to patient size,and/or use of iterative reconstruction technique. IV Contrast dosage and agent: None. RADIATION DOSAGE (If Supplied By Facility): CTDIvol = ( 44.99 ) mGy, DLP = ( 863.60 ) mGycm COMPARISON: No relevant prior comparison study available FINDINGS: BRAIN PARENCHYMA: No intra- or extra-axial hemorrhage. No evidence of acute infarct. No intracranial mass or mass effect. There is preservation of the maier/white matter interface. Posterior fossa structures are unremarkable. CSF SPACES: Appropriate for age. No hydrocephalus. Basal cisterns are patent. CALVARIUM, SKULL BASE, PARANASAL SINUSES AND MASTOID AIR CELLS: Clear. No discrete lytic or blastic abnormalities. ORBITS: Both globes, extraocular muscles, optic nerves and retrobulbar fat appear unremarkable. ASPECTS Score for Acute Strokes: 10 CT/Brain/Head without Contrast IMPRESSION: No acute intracranial process. Electronically Signed: Janet Rodriguez MD at 11:48 EDT ,
--- NOTE | 2023-11-02 09:05 | NURSING ---
NO OLD EKGS
[2023-11-02 09:59] LABS: Absolute Lymphocyte Count 1.75 X10^3/uL (0.83-4.51); Absolute Neutrophil Count 4.1 X10^3/uL (2.0-7.7); Basophil# 0.03 X10^3/uL; Basophil% 0.5 % (0-1); Eosinophil# 0.07 X10^3/uL; Eosinophils% 1.1 % (0-5); Hematocrit 37.1 % (37-47); Hemoglobin 12.3 g/dL (12.0-15.0); Lymphocyte # 1.75 X10^3/ul (0.83-4.51); Lymphocyte % 27.4 % (19-41); Mean Corp Hgb Conc 33.2 g/dL (32-36); Mean Corpuscular Hgb 27.1 pg (27.0-32.0); Mean Corpuscular Volume 81.7 fL (81-99); Monocyte# 0.45 X10^3/uL; Monocyte% 7.1 % (0-10); NRBC Flagged by Analyzer 0 % (0-5); Neutrophil # 4.05 X10^3/uL (2.7-7.7); Neutrophil % 63.4 % (47-70); Platelet Count 270 K/mm3 (150-450); RBC Distribution Width SD 38.7 fl (35.1-43.9); Red Blood Count 4.54 M/mm3 (4.2-5.4); White Blood Count 6.4 K/mm3 (4.4-11.0)
[2023-11-02 10:25] LABS: Alcohol, Blood (Medical)-Serum < 3.0 mg/dL
[2023-11-02] MEDS: Midazolam 2 MG/2 ML Syringe IV (10:25)
[2023-11-02 10:36] LABS: AST(SGOT) 9 U/L (15-37); Alanine Aminotransfer ALT/SGPT 11 U/L (13-56); Albumin, Serum 3.1 g/dL (3.2-5.0); Alkaline Phosphatase 63 U/L (45-117); Anion Gap 5 (5-15); BUN 13 mg/dL (7-18); BUN/Creat Ratio 15.3 RATIO (10-20); Calcium,Total 8.6 mg/dL (8.5-10.1); Chloride 101 mmol/L (98-107); Creatinine, Serum 0.85 mg/dL (0.55-1.02); EST Glomerular Filtration Rate 71 mL/min (>60); Est Glom Filt Rate - Afr Amer 86 mL/min (>60); Estimated Creatinine Clearance 65.57 ml/min; Globulin 3.2 g/dL (2.2-4.2); Glucose 238 mg/dL (74-106); Potassium 3.4 mmol/L (3.5-5.1); Protein, Total 6.3 g/dL (6.4-8.2); Sodium Level 135 mmol/L (136-145); Troponin-I HS 4 pg/mL (3.0-54.0)
[2023-11-02 10:41] LABS: Lactic Acid 0.8 mmol/L (0.4-1.9)
[2023-11-02] MEDS: Ziprasidone IM 20 MG/ML VIAL 10 MG IM (11:10)
--- NOTE | 2023-11-02 11:37 | RAD_ITS ---
INDICATION: confused EXAMINATION/TECHNIQUE: X-RAY - XR Chest 1 View COMPARISON: No relevant prior comparison study available FINDINGS: LINES/DEVICES: None. LUNGS: No consolidation, edema or effusion. No pneumothorax. MEDIASTINUM AND CARDIOVASCULAR STRUCTURES: There is cardiomegaly. Central airways and mediastinal contour are unremarkable. BONES AND SOFT TISSUES: Unremarkable. RAD/Chest 1 View (Portable) IMPRESSION: Cardiomegaly. Electronically Signed: Janet Rodriguez MD at 11:53 EDT ,
[2023-11-02 11:54] LABS: Mucous, Urine 0 SEEN /hpf (<or=2+); Red Blood Cells-Urine 0 SEEN /hpf (0-5)
[2023-11-02 12:00] LABS: Color, Urine Yellow (Yellow); Glucose, Dipstick 100 mg/dl (Normal); Ketone-Dipstick Negative (Negative); Leukocyte Esterase-Dipstick 500 /ul (Negative); Nitrite-Dipstick Negative (Negative); Occult Blood-Urine Negative /ul (Negative); Protein-Dipstick Negative (Negative); Urine Bilirubin Dipstick Negative (Negative); Urine Clarity Cloudy (Clear); Urine Urobilinogen Normal (Normal)
[2023-11-02 12:17] LABS: Bacteria 4+ /hpf (None Seen); Squamous Epithelial Cells - UA 0-5 SEEN /hpf (5-10); White Blood Cells 5-10 SEEN /hpf (0-5)
[2023-11-02] MEDS: Ceftriaxone 1 GM/50 ML BAG IV (12:37)
[2023-11-02 12:38] VITALS: BP 124/66; PULSE 72; RESP 15; TEMP 36.8; O2SAT 97
[2023-11-02 12:48] LABS: Amphetamine Urine VISTA NEGATIVE (<1000 ng/mL); Barbiturate Urine VISTA NEGATIVE (< 200 ng/mL); Benzodiazepine Urine VISTA POSITIVE (< 200 ng/mL); Cocaine Urine VISTA NEGATIVE (< 300 ng/mL); Ecstacy Urine VISTA NEGATIVE (< 500 ng/mL); Methadone Urine VISTA NEGATIVE (< 300 ng/mL); PCP Urine VISTA NEGATIVE (< 25 ng/mL); THC Urine VISTA NEGATIVE (< 50 ng/mL); Vista UDS pH Range 6
--- NOTE | 2023-11-02 12:52 | NURSING ---
med surg obs tereletsky dementia with behavioral disturbance, uti
[2023-11-02 13:25] VITALS: BMI 26.7
--- NOTE | 2023-11-02 13:52 | CASEMGMT ---
Discharge Planning A list of SNF providers including quality and resource use data and consistent with the patient's preferred geographic region, medical needs, and insurance network was created in [facility] Guide.? This list was provided to the SW. Gillian Flowers Discharge Planning Asst.
[2023-11-02 14:09] VITALS: BP 123/69; PULSE 86; RESP 14; TEMP 36.7; O2SAT 99
--- NOTE | 2023-11-02 14:20 | NURSING ---
COMPLETE SKIN ASSESSMENT WAS NOT COMPLETED D/T PT AGITATION. PT PULLED IV OUT, OK TO LEAVE OUT PER DR NEGRETE
--- NOTE | 2023-11-02 14:31 | CASEMGMT ---
Social Work SW met w/pt's in the waiting room, spoke w/him about prior level of function and anticipated discharge plan. PCP: Dr. Blank--now Dr. Little Specialists: None Pharmacy: [facility] Insurance/Prescription Coverage: [employer] LW/POA: does not think pt has ever completed these documents, none on file LNOK: , three children. Two children are in [place], one in [place], [place] Pt and they have 50 years. Living arrangements: Pt lives w/, in a two story home. helps pt with all ADLS including cooking, cleaning, med management, transportation, dressing. Pt refuses to bathe. explains that pt's dementia has gotten worse over the last two years and he now needs to help her with everything. DME: Pt uses a cane HHC/SNF: No history of either. SW spoke w/pt's about discharge plan. does think pt will need to go somewhere intermediate frame tender. He expressed it is getting difficult to care for pt at home. He explains she is incontinent, he tries to help her change, and then she cries. He explained this is how she fell, he was trying to help her change her pants. He will take the pt shopping, will leave her in the car then run in the store and get a couple of items. He said he also will also go for walks to get a break and pt will stay in the house. SW spoke w/pt about SNF, gave pt the list of nursing homes in network w/[employer] to . SW explained we will make referrals and then once we have an accepting facility, will see if [employer] will authorize pt initially for therapy. SW explained we will need to see if pt can participate in therapy, and if she does need therapy. SW explained if pt cannot participate or does not need therapy, [employer] will not cover. states understanding. SW also gave a list of nursing homes in the area and their private pay rates. He states they do have some savings, does not think will qualify for Medicaid. He is willing to speak w/Victoria from [facility], SW will make the referral. SW offered support to . is to follow up w/SW for SNF choices, SW will speak w/him tomorrow. KORIN Quiroz
[2023-11-02] MEDS: Insulin Glargine-YFGN 100 UNIT/ML Pen SC (14:47)
[2023-11-02] MEDS: QUEtiapine 100 MG Tablet PO (14:47)
[2023-11-02] MEDS: Potassium Chloride Oral Tablet 20 MEQ PO (14:47)
--- NOTE | 2023-11-02 16:51 | PCM.HP.STD ---
HPI - General General Date of Admission: 11/02/23 Date of Service: 11/02/23 Chief Complaint: Debility, dementia with behavioral disturbances HPI Narrative FRANKLIN NICHOLE, is a 68 F who presents to the emergency room at [facility] after being brought in by her , her is her caregiver as she has advanced dementia, she slid to the floor today at home and the was able to catch her, she was combative toward her however and he stated to the emergency room staff that he was unable to take care of her at home at the present time. I talked to the patient's who was present at the time my examination. Workup in the emergency room showed a normal white blood cell count, patient was afebrile, imaging studies were unremarkable for any fractures or dislocations or acute intracranial pathology. Chemistry profile was remarkable for a potassium of 3.4, sodium of 135, and a glucose of 238. Patient's urinalysis indicated a urinary tract infection. Toxicology screen was positive for benzodiazepines. Patient was given Versed in the emergency room for agitation in addition she was also given Geodon. Patient will be placed in observation status on [facility] 3, she will be seen by PT and OT, an attempt will be made to place her in an extended care facility for rehab services. [facility] Medical History (Updated 11/02/23 @ 13:35 by Brenda Jeronimo) Osteoporosis Non-smoker Hypertension Type 2 diabetes mellitus Advanced dementia Home Medications ?Medication ?Instructions ?Recorded ?Last Taken ?Type cyanocobalamin (vitamin B-12) 1,000 mcg PO DAILY 11/02/23 11/01/23 History 1,000 mcg tablet hydrochlorothiazide 25 mg tablet 25 mg PO DAILY 11/02/23 11/01/23 History insulin lispro 200 unit/mL (3 mL) 15 unit subcut TIDCM 11/02/23 11/01/23 History subcutaneous pen (Humalog KwikPen U-200 Insulin) losartan 100 mg tablet 50 mg PO QPM 11/02/23 11/01/23 History metformin 1,000 mg tablet 1,000 mg PO BID 11/02/23 11/01/23 History verapamil 240 mg tablet,extended 240 mg PO DAILY 11/02/23 Unknown History release Allergy/AdvReac Type Severity Reaction Status Date / Time No Known Allergies Allergy Verified 11/02/23 08:45 Social History (Updated 11/02/23 @ 08:[address] Isidro Dacosta MD) household members: spouse Smoking Status: Never smoker ROS ROS Narrative Review of systems was unobtainable due to patient's dementia Vital Signs Vital Signs Vital Signs: 11/02/23 08:38 11/02/23 08:40 11/02/23 12:38 Temperature 97.8 F 98.3 F Temperature Source Temporal Pulse Rate 81 72 Respiratory Rate 16 15 Respiratory Effort Normal Respiratory Depth Normal Respiratory Pattern Normal Blood Pressure 123/56 H 124/66 H Blood Pressure Mean 78 85 Blood Pressure Source Blood Pressure Position Blood Pressure Location Pulse Ox 98 97 Oxygen Delivery Method Room Air Room Air 11/02/23 12:38 11/02/23 14:09 Temperature 98.3 F 98.0 F Temperature Source Temporal Oral Pulse Rate 72 86 Respiratory Rate 15 14 Respiratory Effort Respiratory Depth Respiratory Pattern Blood Pressure 124/66 H 123/69 H Blood Pressure Mean 85 87 Blood Pressure Source Monitor Blood Pressure Position Supine Blood Pressure Location Left Arm Pulse Ox 97 99 Oxygen Delivery Method Room Air Room Air Weight Weight: 70.76 kg Body Mass Index (BMI) 26.7 Physical Exam Narrative Patient's hygiene is poor. Const alert Constitutional Narrative: Patient is alert, she is confused and fidgety General Appearance: well developed Orientation / Consciousness: confused HEENT normocephalic, head/scalp atraumatic and moist oral mucous membranes Eyes PERRL, EOMs intact bilaterally and conjunctivae normal Neck supple, no JVD, thyroid normal and no carotid bruits General: trachea midline Resp normal respiratory effort, no retractions, no use of accessory muscles and clear to auscultation bilaterally Auscultation: Negative for rales, rhonchi or wheezes Cardio regular rate, regular rhythm, S1 normal heart sound, S2 normal heart sound, no murmurs, no rub and no gallops GI normal to inspection, nondistended, normoactive bowel sounds, soft to palpation, non-tender and non-distended Extremity normal to inspection and no clubbing, cyanosis or edema Skin no rashes or lesions noted General Skin Exam: no breakdown Neuro CN's II-XII intact bilaterally, moves all extremities, no focal motor deficits and no sensory deficits noted Neuro Narrative: Patient is confused, she is not able to carry on conversation Sensorium / Orientation: awake and alert Psych Psych Narrative: Patient is confused, she appears agitated at times Results Lab / Micro Data 11/02/23 09:42 11/02/23 09:42 Labs: Laboratory Results - last 24 hr 11/02/23 09:42: WBC 6.4, RBC 4.54, Hgb 12.3, Hct 37.1, MCV 81.7, MCH 27.1, MCHC 33.2, RDW Std Deviation 38.7, RDW Coeff of Mirian 13.0, Plt Count 270, MPV 10.0, Immature Gran % (Auto) 0.500, Neut % (Auto) 63.4, Lymph % (Auto) 27.4, Nuckolls % (Auto) 7.1, Eos % (Auto) 1.1, Baso % (Auto) 0.5, Absolute Neuts (auto) 4.1, Absolute Lymphs (auto) 1.75, Nucleated RBC % 0, Sodium 135 L, Potassium 3.4 L, Chloride 101, Carbon Dioxide 29.0, Anion Gap 5, BUN 13, Creatinine 0.85, Estim Creat Clear Calc 65.57, Est GFR (MDRD) Af Amer 86, Est GFR (MDRD) Non-Af 71, BUN/Creatinine Ratio 15.3, Glucose 238 H, Lactic Acid 0.8, Calcium 8.6, Total Bilirubin 1.00, AST 9 L, ALT 11 L, Alkaline Phosphatase 63, Troponin I High Sens 4, Total Protein 6.3 L, Albumin 3.1 L, Globulin 3.2, Albumin/Globulin Ratio 1.0, TSH 1.20, Ethyl Alcohol < 3.0 11/02/23 11:49: Urine Color Yellow, Urine Clarity Cloudy, Urine pH 6.0, Ur Specific [place] 1.010, Urine Protein Negative, Urine Glucose (UA) 100 H, Urine Ketones Negative, Urine Occult Blood Negative, Urine Nitrite Negative, Urine Bilirubin Negative, Urine Urobilinogen Normal, Ur Leukocyte Esterase 500 H, Urine RBC 0 SEEN, Urine WBC 5-10 SEEN, Ur Squamous Epith Cells 0-5 SEEN, Urine Bacteria 4+, Urine Mucus 0 SEEN, Urine Opiates Screen NEGATIVE, Urine Methadone Screen NEGATIVE, Ur Barbiturates Screen NEGATIVE, Ur Phencyclidine Scrn NEGATIVE, Ur Amphetamines Screen NEGATIVE, MDMA (Ecstasy) Screen NEGATIVE, U Benzodiazepines Scrn POSITIVE H, Urine Cocaine Screen NEGATIVE, U Cannabinoids Screen NEGATIVE, Ur Drug Screen Comment Micro: Microbiology 11/02/23 09:50 Mucosa - Nasopharyngeal SARS-CoV-2, Influenza & RSV (PCR) - Final Rhythm Strip Rhythm Strip: Sinus Rhythm Rate: 73 Ectopy: None Imaging Radiology Impression Brain CT 11/02/23 09:00 IMPRESSION: No acute intracranial process. Electronically Signed: Janet Rodriguez MD at 11:48 EDT , Chest X-Ray 11/02/23 11:37 IMPRESSION: Cardiomegaly. Electronically Signed: Janet Rodriguez MD at 11:53 EDT , Assessment & Plan Assessment/Plan (1) Acute UTI: PLAN: Plan 1. Acute cystitis-patient will be placed in observation status on MedSurg 3, initially IV Rocephin was to be given to the patient for her UTI but she pulled her IV out and I feel that her cystitis is not severe at this time and she can be placed on oral medications. #2 acute on chronic debility secondary to dementia-patient will be seen by PT and OT, social worker health services will attempt to get her placed into a nursing facility for inpatient rehab services #3 chronic dementia with behavioral disturbances-I have elected to place the patient on Seroquel #4 type 2 diabetes-patient will be given metformin which she takes at home and she will be placed on basal insulin, I will not order fingerstick blood sugars on the patient at this time due to her agitation #5 essential hypertension-patient will remain on her present medication medications for blood pressure and they will be adjusted if needed Total clinical time spent by myself addressing the patient's medical issues, reviewing all of her data, and collaborating with patient's care team: 75 minutes Charges/Coding Visit Charges Inpatient E&M: 47397 Init Hosp L3
[2023-11-02] MEDS: metFORMIN HCl 1,000 MG Tablet 1000 MG PO (17:41)
[2023-11-02] MEDS: Insulin Glargine-YFGN 100 UNIT/ML Pen 9 UNIT SC (17:42)
[2023-11-02] MEDS: Haloperidol Lactate 5 MG/ML Vial IM (18:53)
[2023-11-02] MEDS: QUEtiapine 25 MG Tablet 50 MG PO (18:53)
--- NOTE | 2023-11-02 18:58 | NURSING ---
haldol and x1 dose of seroquel given. pt moved back to bed from azeb chair. bed exit on.
--- NOTE | 2023-11-02 20:37 | NURSING ---
Pt refused vitals and assessment at this time.
--- NOTE | 2023-11-02 22:56 | NURSING ---
Pt refused her vitals, assessments and medications at this time.
[2023-11-03] MEDS: Haloperidol Lactate 5 MG/ML Vial IM ×3 (06:39→20:26)
--- NOTE | 2023-11-03 06:51 | NURSING ---
Pt refused vitals and assessment this shift and then woke up combative. She was completely confused. IM haldol Given.
[2023-11-03] MEDS: Cephalexin 500 MG Capsule PO (09:54)
[2023-11-03] MEDS: Verapamil SR 240 MG Tablet PO (09:54)
[2023-11-03] MEDS: QUEtiapine 100 MG Tablet PO (09:54)
[2023-11-03] MEDS: metFORMIN HCl 1,000 MG Tablet 1000 MG PO (09:55)
[2023-11-03] MEDS: Insulin Glargine-YFGN 100 UNIT/ML Pen 20 UNIT SC (09:55)
[2023-11-03] MEDS: Enoxaparin 40 MG/0.4 ML Syringe SC (09:56)
--- NOTE | 2023-11-03 10:56 | CASEMGMT ---
Social Work SW spoke w/, he does not believe pt has ever completed LW/POA, pt not able to complete these documents at this time due to her medical diagnosis. SW explained to he would be considered next of kin and decision maker, he is aware and states understanding. KORIN Quiroz
--- NOTE | 2023-11-03 10:58 | CASEMGMT ---
Addendum entered by Lawanda Vela 11/03/23 11:46: Social Work is here, SW spoke w/him in waiting room. He would like a referral to [facility]. SW explained we will make the referral, see if they can take pt. SW explained we can try for precert but if [place] [facility] [place] denies it would be private pay from the start. states understanding. He states would want a private room for pt and is prepared to pay privately. SW explained will send referral today vs tomorrow, and let him know. SW also let him know if [facility] cannot take pt, would need additional choices. He states understanding. SW did let him know also that Victoria from [facility] will be calling him. SW spoke w/physician, he states to make referral today, adjusting meds to help w/behaviors. SW sent referral to [facility], did let them know is looking at short to long-term, and that the doctor is adjusting medications. SW will continue to follow. KORIN Quiroz Original Note: Social Work SW spoke w/Victoria from [facility], asked her to follow up w/ regarding Medicaid as pt will likely need to go somewhere long-term. She will follow up w/. KORIN Quiroz
--- NOTE | 2023-11-03 12:31 | CASEMGMT ---
Met with patients to complete MELISSA form. MELISSA form explained to patients who voiced understanding and signed form. Original form placed in pt?s chart and copy provided to patient . Gillian Flowers, Discharge Planning Asst
--- NOTE | 2023-11-03 13:59 | CASEMGMT ---
Addendum entered by Lawanda Vela 11/03/23 14:21: Social Work SW spoke w/pt's . SW let him know [facility] is considering pt but wants to see how she does the next 24 hours before saying if they will take her or not. SW let know Cherelle from [facility] will be calling him, and will also come in to see pt tomorrow. SW asked to review the list again and choose a few other facilities in the event [facility] cannot take pt and let SW know tomorrow. states understanding, SW will follow up w/him tomorrow. KORIN Quiroz Original Note: Social Work SW spoke w/Cherelle from [facility], she states she wants to see how pt does in the next 24 hours before making a decision. She also plans to come see pt tomorrow, and will call . SW called pt's , message left to call SW back. SW will continue to follow. KORIN Quiroz
--- NOTE | 2023-11-03 14:31 | NURSING ---
Pt non cooperative/ combative. refuse to allow fingerstick, vitals, assessment.
--- NOTE | 2023-11-03 16:08 | PN.HOSP_ITS ---
Reason for Visit Reason for Visit: Diagnoses Urinary tract infection, site not specified (11/02/23) Subjective Subjective Patient was seen and examined today, she remains confused, she appears in no distress, she has been given IM Haldol as needed for agitation. I have added on Lexapro and BuSpar, she is currently on Seroquel, I do not believe I should increase the dose of Seroquel at this time. Problem seems to be that the patient will not take oral medications at times. Objective Data Objective Data Vital Signs: Vital Signs Temp Pulse Resp BP Pulse Ox O2 Del Method 98.0 F 86 14 123/69 H 99 Room Air 11/02/23 14:11/02/23 14:11/02/23 14:11/02/23 14:11/02/23 14:11/02/23 14:09 Oxygen Delivery Method Room Air Weight: 70.76 kg Body Mass Index (BMI) 26.7 Intake & Output: Intake and Output for Last 24 Hours 11/01/23 11/02/23 11/03/23 23:59 23:59 23:59 Intake Total 50 / 50 0 / 0 Balance 50 / 50 0 / 0 Lab / Micro Data 11/02/23 09:42 11/02/23 09:42 Micro: Microbiology 11/02/23 11:49 Urine, Catheterized Urine Culture - Preliminary Presumptive E. coli 11/02/23 09:50 Mucosa - Nasopharyngeal SARS-CoV-2, Influenza & RSV (PCR) - Final Rhythm Strip Rhythm Strip: Sinus Rhythm Rate: 73 Ectopy: None Physical Exam Narrative alert Constitutional Narrative: Patient is alert, she is confused and fidgety General Appearance: well developed Orientation / Consciousness: confused HEENT normocephalic, head/scalp atraumatic and moist oral mucous membranes Eyes PERRL, EOMs intact bilaterally and conjunctivae normal Neck supple, no JVD, thyroid normal and no carotid bruits General: trachea midline Resp normal respiratory effort, no retractions, no use of accessory muscles and clear to auscultation bilaterally Auscultation: Negative for rales, rhonchi or wheezes Cardio regular rate, regular rhythm, S1 normal heart sound, S2 normal heart sound, no murmurs, no rub and no gallops GI normal to inspection, nondistended, normoactive bowel sounds, soft to palpation, non-tender and non-distended Extremity normal to inspection and no clubbing, cyanosis or edema Skin no rashes or lesions noted General Skin Exam: no breakdown Neuro CN's II-XII intact bilaterally, moves all extremities, no focal motor deficits and no sensory deficits noted Neuro Narrative: Patient is confused, she is not able to carry on conversation Sensorium / Orientation: awake and alert Psych Psych Narrative: Patient is confused, she appears agitated at times Assessment & Plan Assessment/Plan (1) Dementia with behavioral disturbance: (2) Acute UTI: PLAN: Plan 1. Acute cystitis-patient will be placed in observation status on MedSurg 3, patient is currently on oral Keflex #2 acute on chronic debility secondary to dementia-patient will be seen by PT and OT, manager social media will attempt to get her placed into a nursing facility for inpatient rehab services #3 chronic dementia with behavioral disturbances-patient is on Seroquel, BuSpar, and Lexapro #4 type 2 diabetes-patient will be given metformin which she takes at home and she will be placed on basal insulin, I will not order fingerstick blood sugars on the patient at this time due to her agitation #5 essential hypertension-patient will remain on her present medication medications for blood pressure and they will be adjusted if needed Total clinical time spent by myself addressing the patient's medical issues, reviewing all of her data, and collaborating with patient's care team: 50 minutes Charges/Coding Visit Charges Inpatient E&M: 94860 [facility] Hosp L3
--- NOTE | 2023-11-03 22:30 | NURSING ---
Pt refused assessment, vital signs and all medications this evening. Has become aggressive with staff. Urinated all over floor. Cleaned up by staff and redressed.
[2023-11-03] MEDS: QUEtiapine 100 MG Tablet 150 MG PO (23:21)
[2023-11-03] MEDS: busPIRone 15 MG TABLET PO (23:21)
--- NOTE | 2023-11-04 06:07 | NURSING ---
Pt refused all assessments and vitals mini shifter 11/03/23 7p -7a
[2023-11-04 10:52] VITALS: BP 125/76; PULSE 99; RESP 18; TEMP 36.6; O2SAT 94
[2023-11-04] MEDS: Escitalopram Oxalate 20 MG Tablet PO (11:52)
[2023-11-04] MEDS: busPIRone 15 MG TABLET PO ×2 (11:52→23:52)
[2023-11-04] MEDS: QUEtiapine 100 MG Tablet 150 MG PO (11:53)
[2023-11-04] MEDS: Insulin Glargine-YFGN 100 UNIT/ML Pen 20 UNIT SC (12:01)
[2023-11-04] MEDS: Verapamil SR 240 MG Tablet PO (12:21)
[2023-11-04] MEDS: metFORMIN HCl 1,000 MG Tablet 1000 MG PO (12:21)
[2023-11-04] MEDS: Cephalexin 500 MG Capsule PO ×2 (12:22→23:53)
--- NOTE | 2023-11-04 14:01 | CASEMGMT ---
Discharge Planning [facility] has accepted patient. Updates sent and requested that precert be submitted. Gillian Flowers DC Planning Asst.
--- NOTE | 2023-11-04 14:03 | CASEMGMT ---
Addendum entered by Lawanda Vela 11/04/23 15:37: Social Work Pt's Shan called SW back. He states after thinking about it and talking it over with his sister, he would actually rather pt just go private pay to SNF from day one, rather than have the shelter do therapy with her. He states he is concerned doing therapy will just aggravate her. SW explained will let [facility] know, will see if Cherelle needs to speak w/him. SW explained that if pt has a good night, does not need Haldol this evening, perhaps we can get her over to [facility] tomorrow. inn agreement with this. SW called Cherelle at [facility], message left updating her on what had told SW, asked her to follow up w/ regarding payment as needed. SW also sent a message with the same information in [facility]. SW will continue to follow. KORIN Quiroz Addendum entered by Lawanda Vela 11/04/23 14:47: Social Work Pt's called back. SW let him know that [facility] will likely take pt, as long as she can be Haldol free for 24 hours. SW explained it is okay for her to have the sitter in the room. SW explained they will try for precert, though it is likely [place] will not approve as pt is getting around okay. states understanding, is prepared to private pay from the first day if needed. SW will continue to follow. KORIN Quiroz Original Note: Social Work Cherelle from [facility] came to see pt and spoke w/. [facility] did respond in [employer] that they can take pt once she has been 24 hours without haldol, but having a sitter is okay. Gillian, d/c planning intern, sent updates and asked them to start precert. SW called to update him, message left. KORIN Quiroz
--- NOTE | 2023-11-04 16:36 | PN.HOSP_ITS ---
Reason for Visit Reason for Visit: Diagnoses Unspecified dementia, unspecified severity, with other behavioral disturbance (11/02/23) Urinary tract infection, site not specified (11/02/23) Subjective Subjective Patient was seen and examined today, she does not appear to be as agitated as she has been over the past couple of days. I elected to stop her IM Haldol and use IM Vistaril if necessary, I also elected to increase her Seroquel to 200 mg twice daily. At times patient does not take her oral medications. Objective Data Objective Data Vital Signs: Vital Signs Temp Pulse Resp BP Pulse Ox O2 Del Method 97.9 F 99 18 125/76 H 94 Room Air 11/04/23 10:52 11/04/23 10:52 11/04/23 10:52 11/04/23 10:52 11/04/23 10:52 11/04/23 11:10 Oxygen Delivery Method Room Air Weight: 70.76 kg Body Mass Index (BMI) 26.7 Intake & Output: Intake and Output for Last 24 Hours 11/02/23 11/03/23 11/04/23 23:59 23:59 23:59 Intake Total 50 / 50 0 / 100 100 / 100 Balance 50 / 50 0 / 100 100 / 100 Lab / Micro Data 11/02/23 09:42 11/02/23 09:42 Micro: Microbiology 11/02/23 11:49 Urine, Catheterized Urine Culture - Final Presumptive E. coli 11/02/23 09:50 Mucosa - Nasopharyngeal SARS-CoV-2, Influenza & RSV (PCR) - Final Rhythm Strip Rhythm Strip: Sinus Rhythm Rate: 73 Ectopy: None Physical Exam Narrative Constitutional Narrative: Patient is alert, she is confused and fidgety General Appearance: well developed Orientation / Consciousness: confused HEENT normocephalic, head/scalp atraumatic and moist oral mucous membranes Eyes PERRL, EOMs intact bilaterally and conjunctivae normal Neck supple, no JVD, thyroid normal and no carotid bruits General: trachea midline Resp normal respiratory effort, no retractions, no use of accessory muscles and clear to auscultation bilaterally Auscultation: Negative for rales, rhonchi or wheezes Cardio regular rate, regular rhythm, S1 normal heart sound, S2 normal heart sound, no murmurs, no rub and no gallops GI normal to inspection, nondistended, normoactive bowel sounds, soft to palpation, non-tender and non-distended Extremity normal to inspection and no clubbing, cyanosis or edema Skin no rashes or lesions noted General Skin Exam: no breakdown Neuro CN's II-XII intact bilaterally, moves all extremities, no focal motor deficits and no sensory deficits noted Neuro Narrative: Patient is confused, she is not able to carry on conversation Sensorium / Orientation: awake and alert Psych Psych Narrative: Patient is confused Assessment & Plan Assessment/Plan (1) Dementia with behavioral disturbance: (2) Acute UTI: PLAN: Plan 1. Acute cystitis-patient continues on oral Keflex #2 acute on chronic debility secondary to dementia-patient will be seen by PT and OT, high school social studies teacher will attempt to get her placed into a nursing facility for inpatient rehab services #3 chronic dementia with behavioral disturbances-patient is on Seroquel, BuSpar, and Lexapro, today I increase the patient's Seroquel dosage #4 type 2 diabetes-patient will be given metformin which she takes at home and she will be placed on basal insulin, I will not order fingerstick blood sugars on the patient at this time due to her agitation #5 essential hypertension-patient will remain on her present medication medications for blood pressure and they will be adjusted if needed Total clinical time spent by myself addressing the patient's medical issues, reviewing all of her data, and collaborating with patient's care team: 35 minutes Charges/Coding Visit Charges Inpatient E&M: 44617 Subs Hosp L2
[2023-11-04 18:24] VITALS: BP 113/68; PULSE 104; RESP 18; TEMP 36.5; O2SAT 97
[2023-11-04] MEDS: hydrOXYzine 50 MG/ML Vial IM (20:00)
[2023-11-04] MEDS: QUEtiapine 100 MG Tablet 200 MG PO (23:52)
--- NOTE | 2023-11-05 02:16 | NURSING ---
pt refusing assessment and vitals this shift.
--- NOTE | 2023-11-05 06:51 | NURSING ---
pt continued to refuse to have assessment and vitals completed throughout shift.
--- NOTE | 2023-11-05 08:47 | CASEMGMT ---
Discharge Planning Updates sent to [facility] via [employer]. Asked if patient is able to admit today. Awaiting response. Gillian Flowers DC Planning Asst.
--- NOTE | 2023-11-05 09:31 | CASEMGMT ---
Social Work SW reviewed chart, pt did not get Haldol last evening or this morning. SW updated [facility]. [facility] responded in [employer], they spoke w/ about private pay and pt can admit today. SW let physician know, he will discharge pt today. SW completed the PAS/RR w/results, further review not needed. SW left a message for that pt can go [facility] today, will call back when we have a time. KORIN Quiroz
--- NOTE | 2023-11-05 09:49 | PCM.TXEXTCAR ---
Diet Diet Order/Speech Therapy: 11/02/23 13:55 Diet: Regular - General Food consistency:: Regular Liquid Consistency:: Regular/Thin Is pt able to select menu?: No Diet Comments: vegitarian but will eat meat and likes sweets. plastic utensils ONLY Routine Orders/Code Status Code Status: DNRCC-A (no intubation) Therapies Weight Bearing: Full weight bearing Physical Therapy: Eval and Treat Occupational Therapy: Eval and Treat Speech Therapy: Eval and Treat Problem/Diagnosis (1) Dementia with behavioral disturbance: Status: Acute Code(s): F03.918 - Unspecified dementia, unspecified severity, with other behavioral disturbance (2) Acute UTI: Status: Acute Code(s): N39.0 - Urinary tract infection, site not specified Plan 1. Acute cystitis-patient continues on oral Keflex #2 acute on chronic debility secondary to dementia-patient will be seen by PT and OT, social media content manager will attempt to get her placed into a nursing facility for inpatient rehab services #3 chronic dementia with behavioral disturbances-patient is on Seroquel, BuSpar, and Lexapro, today I increase the patient's Seroquel dosage #4 type 2 diabetes-patient will be given metformin which she takes at home and she will be placed on basal insulin, I will not order fingerstick blood sugars on the patient at this time due to her agitation #5 essential hypertension-patient will remain on her present medication medications for blood pressure and they will be adjusted if needed Total clinical time spent by myself addressing the patient's medical issues, reviewing all of her data, and collaborating with patient's care team: 35 minutes Allergies/Procedures Done in Hospital Allergies No Known Allergies Allergy (Verified 11/02/23 08:45) Procedures: None Type of Care/Length of Stay Estimated LOS: Convalescent Care Less Than 30 days Type of Care Needed: Skilled Rehab Potential: Fair Prognosis: Fair Additional Orders/Day of Discharge H&P will serve as current which was dated: 11/02/23 Day of Discharge: 11/05/23 Discharge Plan Admission Admit Date/Time: 11/02/23 12:26 Primary Reason for Your Visit: debility Attending Provider: Michael Jones Primary Care Provider: Ruchi Blank Discharge Orders/Prescriptions Prescriptions: New acetaminophen 325 mg Tablet 650 mg PO Q6H PRN PRN (Reason: Pain 1-10 Or Fever >100.7) Qty: 0 0RF cephalexin 500 mg Capsule 500 mg PO BID Qty: 0 0RF Rx Instructions: give 11 doses starting the evening of 11/05/23 buspirone 15 mg Tablet 15 mg PO TID Qty: 0 0RF escitalopram oxalate 20 mg Tablet 20 mg PO DAILY Qty: 0 0RF insulin glargine-yfgn 100 unit/mL (3 mL) Insulin Pen 20 unit subcut DAILY Qty: 0 0RF quetiapine 100 mg Tablet 200 mg PO BID Qty: 0 0RF Continued cyanocobalamin (vitamin B-12) 1,000 mcg tablet 1,000 mcg PO DAILY metformin 1,000 mg tablet 1,000 mg PO BID losartan 100 mg tablet 50 mg PO QPM verapamil 240 mg tablet extended release 240 mg PO DAILY Discontinued hydrochlorothiazide 25 mg tablet 25 mg PO DAILY Humalog KwikPen Insulin 200 unit/mL (3 mL) insulin pen 15 unit subcut TIDCM Referrals / Follow Up: Ruchi Blank MD [Primary Care Provider] - Ravin Dave MD [Med Staff - Television Cameraman] - Disposition Disposition (needs filled in before D/C Order can be placed): Care Home Facility
[2023-11-05] MEDS: Verapamil SR 240 MG Tablet PO (09:52)
[2023-11-05] MEDS: Escitalopram Oxalate 20 MG Tablet PO (09:53)
[2023-11-05] MEDS: metFORMIN HCl 1,000 MG Tablet 1000 MG PO (09:53)
[2023-11-05] MEDS: Acetaminophen 325 MG Tablet 650 MG PO (09:58)
[2023-11-05] MEDS: Cephalexin 500 MG Capsule PO (09:58)
[2023-11-05] MEDS: Insulin Glargine-YFGN 100 UNIT/ML Pen 20 UNIT SC (09:59)
[2023-11-05] MEDS: QUEtiapine 100 MG Tablet 200 MG PO (10:01)
--- NOTE | 2023-11-05 10:02 | DS.PCM_ITS ---
Providers Date of Admission: 11/02/23 Date of Discharge: 11/05/23 Primary Care Physician: Dr. Ruchi Blank MD Reason For Visit: CYSTITIS, DEMENTIA W/ BEHAVIORAL DISTURBANCES Diagnosis Discharge Diagnosis (1) Dementia with behavioral disturbance: Status: Acute Code(s): F03.918 - Unspecified dementia, unspecified severity, with other behavioral disturbance (2) Acute UTI: Status: Acute Code(s): N39.0 - Urinary tract infection, site not specified Plan 1. Acute cystitis-patient continues on oral Keflex #2 acute on chronic debility secondary to dementia-patient will be seen by PT and OT, criminal justice social worker will attempt to get her placed into a nursing facility for inpatient rehab services #3 chronic dementia with behavioral disturbances-patient is on Seroquel, BuSpar, and Lexapro, today I increase the patient's Seroquel dosage #4 type 2 diabetes-patient will be given metformin which she takes at home and she will be placed on basal insulin, I will not order fingerstick blood sugars on the patient at this time due to her agitation #5 essential hypertension-patient will remain on her present medication medications for blood pressure and they will be adjusted if needed Total clinical time spent by myself addressing the patient's medical issues, reviewing all of her data, and collaborating with patient's care team: 35 minutes Medications at Discharge Home Medications cyanocobalamin (vitamin B-12) 1,000 mcg tablet 1,000 mcg PO DAILY 11/02/23 losartan 100 mg tablet 50 mg PO QPM 11/02/23 metformin 1,000 mg tablet 1,000 mg PO BID 11/02/23 verapamil 240 mg tablet,extended release 240 mg PO DAILY 11/02/23 acetaminophen 325 mg tablet 650 mg (2 x 325 mg) PO Q6H PRN PRN Pain 1-10 Or Fever >100.7 #0 tabs 11/05/23 buspirone 15 mg tablet 15 mg PO TID #0 tabs 11/05/23 cephalexin 500 mg capsule 500 mg PO BID #0 caps 11/05/23 escitalopram oxalate 20 mg tablet 20 mg PO DAILY #0 tabs 11/05/23 insulin glargine-yfgn 100 unit/mL (3 mL) subcutaneous pen 20 unit (0.2 mL) subcut DAILY #0 mL 11/05/23 quetiapine 100 mg tablet 200 mg (2 x 100 mg) PO BID #0 tabs 11/05/23 Hospital Course Operations None Procedures None Summary of Care Provided Minutes Spent on Discharge: 31 Hospital Course: This 68-year-old white female was brought to the emergency room at [facility] for evaluation after she had a mechanical fall at home, she did not have any obvious injuries, had difficulty taking care of the patient due to her dementia with combative behavior. Chest x-ray and brain CT showed no acute process, patient's labs revealed a normal CBC, patient's potassium was low at 3.4, and blood sugar was 238. Urinalysis indicated possible cystitis. Patient was given Versed and Geodon in the emergency room due to combative behavior, she was initially placed on IV Rocephin for her cystitis, patient pulled her IV out and so she was transition to oral medication. Due to combative behavior, blood sugars were not monitored during her stay in the hospital. Patient was placed on antipsychotic medication to help with her behavior. Patient's agreed to temporary placement in a detention facility. On 11/05/2023, patient was seen and examined:Constitutional Narrative: Patient is alert, she is confused and fidgety General Appearance: well developed Orientation / Consciousness: confused HEENT normocephalic, head/scalp atraumatic and moist oral mucous membranes Eyes PERRL, EOMs intact bilaterally and conjunctivae normal Neck supple, no JVD, thyroid normal and no carotid bruits General: trachea midline Resp normal respiratory effort, no retractions, no use of accessory muscles and clear to auscultation bilaterally Auscultation: Negative for rales, rhonchi or wheezes Cardio regular rate, regular rhythm, S1 normal heart sound, S2 normal heart sound, no murmurs, no rub and no gallops GI normal to inspection, nondistended, normoactive bowel sounds, soft to palpation, non-tender and non-distended Extremity normal to inspection and no clubbing, cyanosis or edema Skin no rashes or lesions noted General Skin Exam: no breakdown Neuro CN's II-XII intact bilaterally, moves all extremities, no focal motor deficits and no sensory deficits noted Neuro Narrative: Patient is confused, she is not able to carry on conversation Sensorium / Orientation: awake and alert Psych Psych Narrative: Patient is confused Patient appears stable for transfer to an extended care facility on 11/05/2023. Weight / BMI Weight Weight: 70.76 kg Body Mass Index (BMI) 26.7 ABG / Lab / Microbiology Data 11/02/23 09:42 11/02/23 09:42 Microbiology: Microbiology 11/02/23 11:49 Urine, Catheterized Urine Culture - Final Presumptive E. coli 11/02/23 09:50 Mucosa - Nasopharyngeal SARS-CoV-2, Influenza & RSV (PCR) - Final Meaningful Use Info Meaningful Use Meaningful Use Diagnoses (Choose all that apply): None applicable Ischemic Stroke Statin Dosing Therapy Reference: STATIN DOSE THERAPY REFERENCE: * Patients > 75 years receive moderate or high dose statin therapy. * Patients 75 years or YOUNGER should receive HIGH intensity statin dose unless contraindicated. You will be required to document reason for non-treatment if statin daily dose does not meet guidelines. HIGH DOSE STATIN THERAPY DAILY Atorvastatin > than or = to 40 mg Rosuvastatin > than or = to 20 mg Amlodipine + Atorvastatin > than or = to 2.5/40 mg Ezetimibe + Simvastatin 10/80 mg Simvastatin 80mg Discharge Plan Admission Admit Date/Time: 11/02/23 12:26 Primary Reason for Your Visit: debility Attending Provider: Michael Jones Primary Care Provider: Ruchi Blank Discharge Orders/Prescriptions Prescriptions: New acetaminophen 325 mg Tablet 650 mg PO Q6H PRN PRN (Reason: Pain 1-10 Or Fever >100.7) Qty: 0 0RF cephalexin 500 mg Capsule 500 mg PO BID Qty: 0 0RF Rx Instructions: give 11 doses starting the evening of 11/05/23 buspirone 15 mg Tablet 15 mg PO TID Qty: 0 0RF escitalopram oxalate 20 mg Tablet 20 mg PO DAILY Qty: 0 0RF insulin glargine-yfgn 100 unit/mL (3 mL) Insulin Pen 20 unit subcut DAILY Qty: 0 0RF quetiapine 100 mg Tablet 200 mg PO BID Qty: 0 0RF Continued cyanocobalamin (vitamin B-12) 1,000 mcg tablet 1,000 mcg PO DAILY metformin 1,000 mg tablet 1,000 mg PO BID losartan 100 mg tablet 50 mg PO QPM verapamil 240 mg tablet extended release 240 mg PO DAILY Discontinued hydrochlorothiazide 25 mg tablet 25 mg PO DAILY Humalog KwikPen Insulin 200 unit/mL (3 mL) insulin pen 15 unit subcut TIDCM Referrals / Follow Up: Ruchi Blank MD [Primary Care Provider] - Ravin Dave MD [Med Staff - Client Resolution Specialist] - Disposition Disposition (needs filled in before D/C Order can be placed): [facility] Facility Charges/Coding Visit Charges Inpatient E&M: 33606 Disch Hosp >30min
[2023-11-05 10:20] VITALS: BP 112/74; PULSE 100; RESP 18; TEMP 37; O2SAT 98
--- NOTE | 2023-11-05 10:22 | CASEMGMT ---
Addendum entered by Lawanda Vela 11/05/23 10:29: Social Work Pt's called back, agreeable to pickup at 12pm. No further needs, pt to [facility] today. KORIN Quiroz Original Note: Social Work Pt is set to leave at 12pm. SW left pt's Shan a message on his cell phone letting him know the time. SW also called the home number and left a message letting him know the time of 12pm pickup. Pt to [facility] today, private pay. KORIN Quiroz
--- NOTE | 2023-11-05 10:27 | PHA.DC.MR.R ---
Pharmacy [place] Med Reconciliation Pharmacy Service has performed discharge medication reconciliation for this patient upon transfer to SNF. The patient's discharge medication list was reviewed for discrepancies and discrepancies were resolved. Medications at Discharge Home Medications cyanocobalamin (vitamin B-12) 1,000 mcg tablet 1,000 mcg PO DAILY 11/02/23 losartan 100 mg tablet 50 mg PO QPM 11/02/23 metformin 1,000 mg tablet 1,000 mg PO BID 11/02/23 verapamil 240 mg tablet,extended release 240 mg PO DAILY 11/02/23 acetaminophen 325 mg tablet 650 mg (2 x 325 mg) PO Q6H PRN PRN Pain 1-10 Or Fever >100.7 #0 tabs 11/05/23 buspirone 15 mg tablet 15 mg PO TID #0 tabs 11/05/23 cephalexin 500 mg capsule 500 mg PO BID #0 caps 11/05/23 escitalopram oxalate 20 mg tablet 20 mg PO DAILY #0 tabs 11/05/23 insulin glargine-yfgn 100 unit/mL (3 mL) subcutaneous pen 20 unit (0.2 mL) subcut DAILY #0 mL 11/05/23 quetiapine 100 mg tablet 200 mg (2 x 100 mg) PO BID #0 tabs 11/05/23
--- NOTE | 2023-11-05 10:32 | CASEMGMT ---
Discharge Planning Discharge orders, signed med list, and transport time sent to [facility] via [facility]. Physicians will transport patient by cot at 12p. Nursing and SW updated. SW to update patients . Gillian Flowers DC Planning Asst.
[2023-11-05] MEDS: LORazepam 1 MG Tablet PO (11:59)
== END 2023-11-05 13:27 | disposition skilled nursing facility (03) ==
LOC: ED 12:20 → MS3 12:46
PROVIDERS: Admitting Provider Internal Medicine; Emergency Provider Emergency Medicine; PCP Internal Medicine; Visit Provider Internal Medicine
DX: N30.00 Acute cystitis without hematuria (principal); F03.918 Unspecified dementia, unspecified severity, with other behavioral disturbance; E11.9 Type 2 diabetes mellitus without complications; Z79.4 Long term (current) use of insulin; R53.81 Other malaise; I10 Essential (primary) hypertension; Z66 Do not resuscitate; Z79.899 Other long term (current) drug therapy; Z79.84 Long term (current) use of oral hypoglycemic drugs
CPT/HCPCS: 70450; 71045; 80053; 80307; 80320; 81001; 83605; 84443; 84484; 85025; 87086; 87088; 87186; 87631; 93005; 96365; 96372; 96375; 97116; 97162; 97166; 97530; 99221; 99285; P9612; A4216; G0378; G0480; J3486

== ENCOUNTER → 2023-11-09 05:00 | Outpatient (REF) | payer MEDICARE, SELFPAY ==
[2023-11-09 09:32] LABS: Absolute Neutrophil Count 5.7 X10^3/uL (2.0-7.7); Basophil# 0.06 X10^3/uL; Basophil% 0.8 % (0-1); Eosinophils% 1.3 % (0-5); Hematocrit 37.1 % (37-47); Hemoglobin 11.8 g/dL (12.0-15.0); Lymphocyte % 19.1 % (19-41); Mean Corp Hgb Conc 31.8 g/dL (32-36); Mean Corpuscular Hgb 27.1 pg (27.0-32.0); Mean Corpuscular Volume 85.3 fL (81-99); Monocyte# 0.46 X10^3/uL; Monocyte% 5.9 % (0-10); NRBC Flagged by Analyzer 0 % (0-5); Neutrophil # 5.72 X10^3/uL (2.7-7.7); Neutrophil % 72.6 % (47-70); Platelet Count 264 K/mm3 (150-450); RBC Distribution Width CV 13.4 % (11.6-14.6); Red Blood Count 4.35 M/mm3 (4.2-5.4); White Blood Count 7.9 K/mm3 (4.4-11.0)
[2023-11-09 10:02] LABS: Anion Gap 6 (5-15); BUN 21 mg/dL (7-18); Calcium,Total 8.9 mg/dL (8.5-10.1); Chloride 109 mmol/L (98-107); Creatinine, Serum 0.75 mg/dL (0.55-1.02); EST Glomerular Filtration Rate 81 mL/min (>60); Est Glom Filt Rate - Afr Amer 98 mL/min (>60); Glucose 118 mg/dL (74-106); Potassium 3.6 mmol/L (3.5-5.1); Sodium Level 143 mmol/L (136-145)
== END ==
LOC: OLS.SW 05:00
PROVIDERS: PCP Internal Medicine; Visit Provider Family Medicine
DX: N39.0 Urinary tract infection, site not specified (principal); I10 Essential (primary) hypertension; E11.69 Type 2 diabetes mellitus with other specified complication
CPT/HCPCS: 36415; 80048; 85025

== ENCOUNTER → 2023-11-18 06:00 | Outpatient (REF) | payer MEDICARE, SELFPAY ==
[2023-11-18 09:12] LABS: Vitamin B12 306 pg/mL (211-911); Vitamin D,25 Hydroxy 19.2 ng/mL
== END ==
LOC: OLS.SW 06:00
PROVIDERS: PCP Internal Medicine; Referring Provider Family Medicine; Visit Provider Family Medicine
DX: E11.69 Type 2 diabetes mellitus with other specified complication (principal); D51.9 Vitamin B12 deficiency anemia, unspecified
CPT/HCPCS: 36415; 82306; 82607

== ENCOUNTER 2023-11-19 17:32 | Emergency (ER) | payer MEDICARE, SELFPAY ==
[2023-11-19] VITALS (7 sets, daily range): BP systolic 49–119; BP diastolic 22–96; PULSE 83–86; RESP 14–19; TEMP 36.1; O2SAT 94–96; BMI 26.5
--- NOTE | 2023-11-19 17:53 | EKG12_ITS ---
Test Reason : ALTERED LOC Blood Pressure : / mmHG Vent. Rate : 086 BPM Atrial Rate : 086 BPM P-R Int : 152 ms QRS Dur : 078 ms QT Int : 422 ms P-R-T Axes : 056 036 052 degrees QTc Int : 504 ms Normal sinus rhythm Prolonged QT Abnormal ECG Confirmed by Taj Avery ([id number]), medical editor VAUGHN DRIVER ([id number]) on 11/22/2023 8:15:28 AM Referred By: BRANDY Confirmed By:Taj Avery
[2023-11-19] MEDS: 0.9% Normal Saline (1000mL) 1,000 ML 999 ML IV (17:57)
--- NOTE | 2023-11-19 17:58 | EX.ED.DYSGE1 ---
HPI <ZIYAD [place] - Last Filed: 11/19/23 21:26> History of Present Illness Chief Complaint: Alt LOC Narrative Narrative: Patient is a 68-year-old female with history of dementia that is progressed substantially over the last year. The patient had a fall 3 weeks ago, and was unable to get up. The is unable to care for the patient at home. The patient was then admitted to the hospital and sent to the long term. Over the last 2 weeks, per the she has been laying there is sleeping throughout the day. Today, the patient had 1 episode of vomitus, the patient then had her vital signs checked, and the long term found that her blood pressure was low with a systolic blood pressure just above 60. Squad was called and the patient was brought here to the emergency department. Patient is currently DNR CCA however the may want to changes. [facility] <ZIYAD [place] - Last Filed: 11/19/23 21:26> [facility] Medical History (Updated 11/19/23 @ 21:26 by ZIYAD [place]) Accidental fall Osteoporosis Non-smoker Hypertension Type 2 diabetes mellitus Advanced dementia Home Medications ?Medication ?Instructions ?Recorded ?Last Taken ?Type cyanocobalamin (vitamin B-12) 1,000 mcg PO DAILY 11/02/23 11/01/23 History 1,000 mcg tablet losartan 100 mg tablet 50 mg PO QPM 11/02/23 11/01/23 History metformin 1,000 mg tablet 1,000 mg PO BID 11/02/23 11/01/23 History verapamil 240 mg tablet,extended 240 mg PO DAILY 11/02/23 Unknown History release acetaminophen 325 mg tablet 650 mg (2 x 325 mg) PO Q6H PRN PRN 11/05/23 Unknown Rx Pain 1-10 Or Fever >100.7 #0 tabs buspirone 15 mg tablet 15 mg PO TID #0 tabs 11/05/23 Unknown Rx escitalopram oxalate 20 mg tablet 20 mg PO DAILY #0 tabs 11/05/23 Unknown Rx insulin glargine-yfgn 100 unit/mL 20 unit (0.2 mL) subcut DAILY #0 mL 11/05/23 Unknown Rx (3 mL) subcutaneous pen quetiapine 100 mg tablet 200 mg (2 x 100 mg) PO BID #0 tabs 11/05/23 Unknown Rx quetiapine 200 mg tablet 200 mg PO BID 11/19/23 Unknown History Allergy/AdvReac Type Severity Reaction Status Date / Time No Known Allergies Allergy Verified 11/02/23 08:45 Social History (Updated 11/02/23 @ 08:[address] Isidro Dacosta MD) household members: spouse Smoking Status: Never smoker ROS <ZIYAD [place] - Last Filed: 11/19/23 21:26> ROS ED ROS Narrative Secondary to advanced dementia, the patient being nonverbal, review of symptoms was unable to be completed EXAM <ZIYAD [place] - Last Filed: 11/19/23 21:26> Physical Exam Narrative Exam Narrative: Vital signs reviewed. On my evaluation, the patient's blood pressure was hypotensive with a BP of 73/38. Patient does respond to tactile and painful stimuli. GCS 9. HEET: Head normocephalic atraumatic, TMs clear bilaterally. Posterior pharynx is clear, dry mucous membranes. Nares clear bilaterally. Neck: Supple with no lymphadenopathy or tenderness. No signs of meningismus. Cardiac: Regular rate and rhythm no murmurs gallops or rubs, equal peripheral pulses bilaterally. Respiratory: Lungs clear to auscultation bilaterally. No chest tenderness. Abdomen: Soft, nontender, nondistended. No abdominal bruit or pulsatile masses. No hepatosplenomegaly Extremities: No peripheral edema, no signs of gross trauma or deformity. When moving any of the extremities, patient does respond to tactile stimuli. Neuro: Unable to perform neurological exam secondary to patient being GCS of 9. Skin: Clean dry and intact with no rash, purpura, petechiae, vesicles or pustules. Backs/flank: Difficult to assess, patient winced every time I touch the patient. Psych: Per the , patient usually just lays there and sleeps. Const Vital Signs: 11/19/23 17:35 11/19/23 17:45 11/19/23 19:30 Temperature 97 F L Temperature Source Temporal Pulse Rate 86 84 83 Respiratory Rate 16 14 17 Blood Pressure 64/45 L 73/38 L 75/46 L Blood Pressure Mean 51 49 55 Pulse Ox 94 96 Oxygen Delivery Method Room Air Nasal Cannula Oxygen Flow Rate (L/min) 3 11/19/23 19:45 Temperature Temperature Source Pulse Rate 85 Respiratory Rate 17 Blood Pressure 49/38 L Blood Pressure Mean 43 Pulse Ox Oxygen Delivery Method Oxygen Flow Rate (L/min) <Dr. Rubio Jones MD - Last Filed: 11/19/23 21:38> Physical Exam Const Vital Signs: 11/19/23 17:35 11/19/23 17:45 11/19/23 19:30 Temperature 97 F L Temperature Source Temporal Pulse Rate 86 84 83 Respiratory Rate 16 14 17 Blood Pressure 64/45 L 73/38 L 75/46 L Blood Pressure Mean 51 49 55 Pulse Ox 94 96 Oxygen Delivery Method Room Air Nasal Cannula Oxygen Flow Rate (L/min) 3 11/19/23 19:45 Temperature Temperature Source Pulse Rate 85 Respiratory Rate 17 Blood Pressure 49/38 L Blood Pressure Mean 43 Pulse Ox Oxygen Delivery Method Oxygen Flow Rate (L/min) MDM <ZIYAD [place] - Last Filed: 11/19/23 21:26> [facility] Lab Data Labs: Laboratory Results - last 24 hr 11/19/23 11/19/23 17:45 18:18 WBC 18.9 H RBC 4.33 Hgb 11.9 L Hct 38.2 MCV 88.2 MCH 27.5 MCHC 31.2 L RDW Std Deviation 45.4 H RDW Coeff of Mirian 14.2 Plt Count 297 MPV 10.6 Immature Gran % (Auto) 0.800 Neut % (Auto) 87.3 H Lymph % (Auto) 7.1 L Crane % (Auto) 4.6 Eos % (Auto) 0.0 Baso % (Auto) 0.2 Absolute Neuts (auto) 16.5 H Absolute Lymphs (auto) 1.35 Nucleated RBC % 0 Sodium 142 Potassium 5.6 H Chloride 103 Carbon Dioxide 11.0 L Anion Gap 28 H BUN 67 H Creatinine 4.57 H Estim Creat Clear Calc 11.17 Est GFR (MDRD) Af Amer 12 L Est GFR (MDRD) Non-Af 10 L BUN/Creatinine Ratio 14.7 Glucose 328 H Calcium 9.2 Total Bilirubin 0.60 AST 9 L ALT 8 L Alkaline Phosphatase 86 Total Protein 7.1 Albumin 2.7 L Globulin 4.4 H Albumin/Globulin Ratio 0.6 L Lipase 19 Urine Color Yellow Urine Clarity Cloudy Urine pH 6.0 Ur Specific Comstock 1.015 Urine Protein 30 H Urine Glucose (UA) Normal Urine Ketones Negative Urine Occult Blood 50 H Urine Nitrite Negative Urine Bilirubin Negative Urine Urobilinogen Normal Ur Leukocyte Esterase 500 H Urine RBC 0-5 SEEN Urine WBC >100 SEEN Ur Squamous Epith Cells 0-5 SEEN Ur Transition Epith Cell 0-5 SEEN Ur Renal Epithelial Cell 0-5 SEEN Urine Bacteria 4+ Hyaline Casts 0-5 SEEN Urine Mucus 0 SEEN Urine Yeast 3+ Radiography Diagnostic Testing: Clinical Impression(s) from Imaging Studies Chest X-Ray 11/19/23 18:20 IMPRESSION: No radiographic evidence of acute cardiopulmonary disease. Electronically Signed: Reginaldo Berger MD at 18:54 EDT , EKG EKG normal sinus rhythm rate of 86: Attestation: I personally reviewed and interpreted this EKG as follows: Comments: Normal sinus rhythm, rate of 86 bpm, [place] 152 ms, QRS duration 78 ms, no acute ST elevation, no acute infarct noted. Treatment and Re-Evaluation :: Differential diagnosis includes however is not limited to: Sepsis, end-stage dementia, UTI, CVA, aspiration pneumonia, bowel obstruction Patient vital signs show hypotension, patient is not tachycardic. Patient is on oxygen 3 L at 96%, patient does not normally wear oxygen. Patient only responds to painful stimuli, she does say words however there is no send structure. GCS 9. Spoke with the patient's , he is thinking about make the patient DNR CC. ER attending did speak with the patient's power of banking attorney, the choice was decided to make the patient DNR CC. Hospice was contacted. Currently waiting for their call to see if they will be able to evaluate the patient tonight. Patient CBC showed a leukocytosis with a blood count of 18.9. Patient's hemoglobin 11.9 stable. Chemistries show BOOKER with a creatinine of 4.5, on 08 November, the creatinine is 0.75, GFR 10. Patient's blood glucose was 328, lipase was negative. Patient received a chest x-ray as well as urinalysis. EKG was unremarkable. Patient's urinalysis was positive for infection with 4+ bacteria greater than 100 white blood cells, 500 leukocytes. Patient is currently DNR CC, hospice here evaluating the patient. Patient currently is being evaluated by hospice, the plan according to the hospice nurse is to transfer the patient to the facility <Dr. Rubio Jones MD - Last Filed: 11/19/23 21:38> MDM MDM Narrative Medical decision making narrative: I have personally performed a face to face assessment of the patient and have reviewed the MEHREEN Note. I performed a substantive portion of the visit including all aspects of the following. My welsh findings include: History is remarkable for nonverbal for a couple of weeks, not very responsive, low blood pressure. Patient has profound dementia. Patient has a DNR Comfort Care arrest document. The nurse practitioner initially spoke to regarding CODE STATUS. He was leaning towards DNR comfort care and possibly palliative/hospice care. Once laboratory studies are coming back and after seeing patient's blood pressure he was informed of the seriousness of his illness. After discussion with his sister and taking into consideration her poor quality of life he wishes no aggressive means including IV fluids antibiotics. He wants to make her comfortable. Exam is remarkable for hypotension, hypoxia suspect due to aspiration. HEENT exam is limited because patient will not allow me to open her eyes. Her mucosa is dry. Neck is soft and supple. Trachea is midline. Lungs reveal abnormal breath sounds right greater than left. Heart is regular. There is no murmur, gallop or rub. Abdomen is benign. She appears pale. She is presently on oxygen. Medical Decision Making workup was undertaken for possible aspiration pneumonitis with septic shock versus cardiogenic shock versus atypical presentation of pulmonary embolus. After lengthy discussion with regarding CODE STATUS she was made DNR comfort care only. Spoke to the hospice nurse. She will call back to determine if there is a nurse that can come out to evaluate her for inpatient hospice care versus admitting to the hospitalist until the nurses available tomorrow. Other additions or changes: [None] Lab Data Attestation: I reviewed the patient's lab results. Lab results narrative: White count is 18.9 with shift. Comprehensive metabolic panel reveals a BUN of 67 and creatinine of 4.57. Glucose is elevated at 328. CO2 is elevated. Lipase is normal. Labs: Laboratory Results - last 24 hr 11/19/23 11/19/23 17:45 18:18 WBC 18.9 H RBC 4.33 Hgb 11.9 L Hct 38.2 MCV 88.2 MCH 27.5 MCHC 31.2 L RDW Std Deviation 45.4 H RDW Coeff of Mirian 14.2 Plt Count 297 MPV 10.6 Immature Gran % (Auto) 0.800 Neut % (Auto) 87.3 H Lymph % (Auto) 7.1 L Crane % (Auto) 4.6 Eos % (Auto) 0.0 Baso % (Auto) 0.2 Absolute Neuts (auto) 16.5 H Absolute Lymphs (auto) 1.35 Nucleated RBC % 0 Sodium 142 Potassium 5.6 H Chloride 103 Carbon Dioxide 11.0 L Anion Gap 28 H BUN 67 H Creatinine 4.57 H Estim Creat Clear Calc 11.17 Est GFR (MDRD) Af Amer 12 L Est GFR (MDRD) Non-Af 10 L BUN/Creatinine Ratio 14.7 Glucose 328 H Calcium 9.2 Total Bilirubin 0.60 AST 9 L ALT 8 L Alkaline Phosphatase 86 Total Protein 7.1 Albumin 2.7 L Globulin 4.4 H Albumin/Globulin Ratio 0.6 L Lipase 19 Urine Color Yellow Urine Clarity Cloudy Urine pH 6.0 Ur Specific [place]stock 1.015 Urine Protein 30 H Urine Glucose (UA) Normal Urine Ketones Negative Urine Occult Blood 50 H Urine Nitrite Negative Urine Bilirubin Negative Urine Urobilinogen Normal Ur Leukocyte Esterase 500 H Urine RBC 0-5 SEEN Urine WBC >100 SEEN Ur Squamous Epith Cells 0-5 SEEN Ur Transition Epith Cell 0-5 SEEN Ur Renal Epithelial Cell 0-5 SEEN Urine Bacteria 4+ Hyaline Casts 0-5 SEEN Urine Mucus 0 SEEN Urine Yeast 3+ Radiography Diagnostic Testing: Clinical Impression(s) from Imaging Studies Chest X-Ray 11/19/23 18:20 IMPRESSION: No radiographic evidence of acute cardiopulmonary disease. Electronically Signed: Reginaldo Berger MD at 18:54 EDT , Treatment and Re-Evaluation Comments:: The hospice nurses presently here. Hospice physician Dr. Kohler has accepted the patient. Plan is to transfer inpatient hospice facility. Discharge Plan Triage Chief Complaint: Alt LOC ED Midlevel Provider: Dar Kim ED Provider: Jones,Rubio Dx/Rx/DC Orders Clinical Impression: Septic shock, Dementia, Acute UTI, Hypotension, Lethargic, BOOKER (acute kidney injury), Encounter for hospice care discussion, Admission for hospice care Prescriptions: No Action cyanocobalamin (vitamin B-12) 1,000 mcg tablet 1,000 mcg PO DAILY metformin 1,000 mg tablet 1,000 mg PO BID losartan 100 mg tablet 50 mg PO QPM verapamil 240 mg tablet extended release 240 mg PO DAILY acetaminophen 325 mg Tablet 650 mg PO Q6H PRN PRN (Reason: Pain 1-10 Or Fever >100.7) Qty: 0 0RF buspirone 15 mg Tablet 15 mg PO TID Qty: 0 0RF escitalopram oxalate 20 mg Tablet 20 mg PO DAILY Qty: 0 0RF insulin glargine-yfgn 100 unit/mL (3 mL) Insulin Pen 20 unit subcut DAILY Qty: 0 0RF quetiapine 100 mg Tablet 200 mg PO BID Qty: 0 0RF quetiapine 200 mg tablet 200 mg PO BID Primary Care Provider: Dar Soriano Referrals: Ruchi Blank MD [Med Staff - Tobacco Baler] - Print Language: Kiswahili Disposition Disposition: Hospice in Medical Facility
[2023-11-19 18:04] LABS: Absolute Lymphocyte Count 1.35 X10^3/uL (0.83-4.51); Absolute Neutrophil Count 16.5 X10^3/uL (2.0-7.7); Basophil# 0.03 X10^3/uL; Basophil% 0.2 % (0-1); Hematocrit 38.2 % (37-47); Hemoglobin 11.9 g/dL (12.0-15.0); Lymphocyte # 1.35 X10^3/ul (0.83-4.51); Lymphocyte % 7.1 % (19-41); Mean Corp Hgb Conc 31.2 g/dL (32-36); Mean Corpuscular Hgb 27.5 pg (27.0-32.0); Mean Corpuscular Volume 88.2 fL (81-99); Mean Platelet Vol. 10.6 fl (6.2-12.0); Monocyte# 0.87 X10^3/uL; Monocyte% 4.6 % (0-10); NRBC Flagged by Analyzer 0 % (0-5); Neutrophil # 16.52 X10^3/uL (2.7-7.7); Neutrophil % 87.3 % (47-70); Platelet Count 297 K/mm3 (150-450); RBC Distribution Width CV 14.2 % (11.6-14.6); RBC Distribution Width SD 45.4 fl (35.1-43.9); Red Blood Count 4.33 M/mm3 (4.2-5.4); White Blood Count 18.9 K/mm3 (4.4-11.0)
[2023-11-19] MEDS: Ondansetron 4 MG/2 ML Vial IV (18:20)
--- NOTE | 2023-11-19 18:20 | RAD_ITS ---
INDICATION: cough EXAMINATION/TECHNIQUE: X-RAY - portable semiupright AP chest x-ray COMPARISON: 11/02/2023 FINDINGS: LINES/DEVICES: None. LUNGS: No consolidation, edema or effusion. No pneumothorax. MEDIASTINUM AND CARDIOVASCULAR STRUCTURES: Cardiac silhouette not enlarged. Central airways and mediastinal contour are unremarkable. BONES AND SOFT TISSUES: Unremarkable. RAD/Chest 1 View (Portable) IMPRESSION: No radiographic evidence of acute cardiopulmonary disease. Electronically Signed: Reginaldo Berger MD at 18:54 EDT ,
[2023-11-19 18:23] LABS: ALB/GLOB Ratio 0.6 RATIO (0.9-2.4); AST(SGOT) 9 U/L (15-37); Alanine Aminotransfer ALT/SGPT 8 U/L (13-56); Albumin, Serum 2.7 g/dL (3.2-5.0); Alkaline Phosphatase 86 U/L (45-117); Anion Gap 28 (5-15); BUN 67 mg/dL (7-18); BUN/Creat Ratio 14.7 RATIO (10-20); Calcium,Total 9.2 mg/dL (8.5-10.1); Chloride 103 mmol/L (98-107); Creatinine, Serum 4.57 mg/dL (0.55-1.02); EST Glomerular Filtration Rate 10 mL/min (>60); Est Glom Filt Rate - Afr Amer 12 mL/min (>60); Estimated Creatinine Clearance 11.17 ml/min; Globulin 4.4 g/dL (2.2-4.2); Glucose 328 mg/dL (74-106); Lipase 19 U/L (13-75); Potassium 5.6 mmol/L (3.5-5.1); Protein, Total 7.1 g/dL (6.4-8.2); Sodium Level 142 mmol/L (136-145)
[2023-11-19 18:28] LABS: Mucous, Urine 0 SEEN /hpf (<or=2+)
[2023-11-19 18:30] LABS: Color, Urine Yellow (Yellow); Glucose, Dipstick Normal (Normal); Ketone-Dipstick Negative (Negative); Leukocyte Esterase-Dipstick 500 /ul (Negative); Nitrite-Dipstick Negative (Negative); Occult Blood-Urine 50 /ul (Negative); Protein-Dipstick 30 mg/dl (Negative); Specific Gravity, Urine 1.015 (1.002-1.030); Urine Bilirubin Dipstick Negative (Negative); Urine Clarity Cloudy (Clear); Urine Urobilinogen Normal (Normal)
[2023-11-19 18:48] LABS: White Blood Cells >100 SEEN /hpf (0-5)
[2023-11-19 18:49] LABS: Bacteria 4+ /hpf (None Seen); Yeast-Urine 3+ /hpf (None Seen)
--- NOTE | 2023-11-19 18:49 | ED.RN ---
HOSPICE CALLED, THERE IS A LATE HOUR NURSE WHO IS GOING TO CALL US WHEN THEY COME IN SO THAT THEY CAN COME AND SEE PT
[2023-11-19 18:50] LABS: Renal Epithelial Cells 0-5 SEEN /hpf (0-5)
[2023-11-19 18:51] LABS: Hyaline Cast 0-5 SEEN /lpf (0-5); Red Blood Cells-Urine 0-5 SEEN /hpf (0-5)
[2023-11-19 18:52] LABS: Transitional Epithelial - Ur 0-5 SEEN /hpf (0-5)
[2023-11-19 18:53] LABS: Squamous Epithelial Cells - UA 0-5 SEEN /hpf (5-10)
[2023-11-19] MEDS: Morphine 2 MG/ML Syringe 4 MG IV (23:14)
[2023-11-19] MEDS: LORazepam 2 MG/ML Syringe 0.5 MG IV (23:14)
[2023-11-20] MEDS: LORazepam 2 MG/ML Syringe 1 MG IV (00:11)
[2023-11-20 00:42] VITALS: BP 74/41; PULSE 79; RESP 16; TEMP 36; O2SAT 93
== END 2023-11-20 00:48 | disposition hospice, inpatient (51) ==
PROVIDERS: Nurse Practitioner; Emergency Provider Emergency Medicine; PCP Family Medicine; Visit Provider Emergency Medicine
DX: I95.9 Hypotension, unspecified (principal); R65.21 Severe sepsis with septic shock; F03.90 Unspecified dementia, unspecified severity, without behavioral disturbance, psychotic disturbance, mood disturbance, and anxiety; E11.9 Type 2 diabetes mellitus without complications; Z79.4 Long term (current) use of insulin; N17.9 Acute kidney failure, unspecified; R09.02 Hypoxemia; Z51.5 Encounter for palliative care; N39.0 Urinary tract infection, site not specified; R53.81 Other malaise; I10 Essential (primary) hypertension; Z79.899 Other long term (current) drug therapy; Z79.82 Long term (current) use of aspirin
CPT/HCPCS: 51702; 71045; 80053; 81001; 83690; 85025; 93005; 96361; 96374; 96375; 96376; 99285; A4216; J2405